=== PATIENT | female | born 1960 | race Caucasian/White ===

== ENCOUNTER → 2018-04-28 10:15 | Outpatient (CLI) | payer OTHER, SELFPAY | PROVIDERS: Family Provider Internal Medicine; PCP Internal Medicine; Visit Provider Obstetrics & Gynecology | DX: Z12.31 Encounter for screening mammogram for malignant neoplasm of breast (principal) | CPT/HCPCS: 77063; 77067 ==

== ENCOUNTER → 2019-06-13 | Outpatient (CLI) | payer OTHER, SELFPAY ==
--- NOTE | 2019-06-13 10:37 | BI_ITS ---
BILATERAL DIGITAL MAMMOGRAM WITH TOMOSYNTHESIS: Mediolateraloblique and craniocaudal views demonstrate no evidence of dominant parenchymal masses. No cluster of microcalcification or architectural distortion is seen. No evidence of skin thickening. No significant change since 04/28/2018. Breast Density: There are scattered areas of fibroglandular density. CAD was used to assist in final assessment. IMPRESSION: NORMAL MAMMOGRAM BILATERALLY. FINAL ASSESSMENT: BIRAD 1 (NEGATIVE) YEARLY MAMMOGRAM RECOMMENDED Approximately 10% of breast cancers are not detected by mammography. A normal mammogram should not delay biopsy of a clinically suspicious abnormality. Electronically Signed: Honorio Villar, at 19:25 EDT Tel , Service support , BI/SCREEN MAMM (CAD) W/RANDOLPH QUIJANO
== END | disposition home or self-care (01) ==
LOC: OPBI 10:33
PROVIDERS: Family Provider Internal Medicine; PCP Internal Medicine; Referring Provider Internal Medicine; Visit Provider Internal Medicine
DX: Z12.31 Encounter for screening mammogram for malignant neoplasm of breast (principal)
CPT/HCPCS: 77063; 77067

== ENCOUNTER → 2020-08-22 08:11 | Outpatient (CLI) | payer OTHER, SELFPAY ==
--- NOTE | 2020-08-22 08:14 | BI_ITS ---
MAMMOGRAPHY - BILATERAL SCREENING REASON FOR EXAM: Female, 60 years old. Routine annual screening examination. PERTINENT HISTORY: Non-contributory. TECHNIQUE: Digital bilateral breast randolph (3D mammographic acquisition) in the CC and MLO projections. 2-D mediolateral oblique (MLO) and craniocaudad (CC) views of both breasts were obtained. CAD: Full Field Digital Mammography with Computer Added Detection was performed. COMPARISON: Comparison is made with prior study dated 06/13/2019 and 04/28/2018. FINDINGS: Breast Composition: There are scattered areas of fibroglandular density. Stable small benign-appearing bilateral axillary lymph nodes. There are no dominant masses or suspicious calcifications. No other significant abnormalities are identified. There has been no significant change since the prior study. BI/SCREEN MAMM (CAD) W/RANDOLPH BILAT IMPRESSION: Stable bilateral screening mammogram. Yearly follow-up mammogram recommended. (A) ASSESSMENT CATEGORY: BIRADS Category 2: Benign. A letter regarding these results will be sent to the patient by the facility within 30 days. Approximately 10% of breast cancers are not detected by mammography. A normal mammogram should not delay biopsy of a clinically suspicious abnormality. [id number] Electronically Signed: Puneet Workman, at 9:12 EST , Service support ,
== END ==
PROVIDERS: PCP Internal Medicine; Referring Provider Internal Medicine; Visit Provider Internal Medicine
DX: Z12.31 Encounter for screening mammogram for malignant neoplasm of breast (principal)
CPT/HCPCS: 77063; 77067

== ENCOUNTER 2021-07-24 10:05 | Emergency (ER) | payer OTHER, SELFPAY ==
[2021-07-24 10:06] VITALS: BP 179/72; PULSE 67; RESP 18; TEMP 37; O2SAT 99; BMI 40.4
--- NOTE | 2021-07-24 10:22 | CT_ITS ---
STUDY: CT ABDOMEN AND PELVIS WITHOUT CONTRAST REASON FOR EXAM: Female, 61 years old. Right flank pain RADIATION DOSAGE (If Supplied By Facility): CTDIvol = ( 21.69 ) mGy, DLP = ( 1067.57 ) mGycm TECHNIQUE: Transaxial images were obtained from the dome of the diaphragm to the symphysis pubis without oral contrast, and without intravenous contrast. Sagittal and coronal images were reconstructed. Individualized dose optimization techniques were used for this CT. COMPARISON: None. FINDINGS: The visualized lung bases are unremarkable. The visualized portions of the heart are within normal limits. There is decreased attenuation of the liver consistent with steatosis. Normal gallbladder and extrahepatic biliary system. Normal spleen. Normal pancreas. Normal bilateral adrenal glands. There is mild degree of right hydronephrosis and right hydroureter down to the level of the ureterovesical junction. A 3 mm calculus is seen at the base of the bladder on the right side suggestive of a recently passed ureteral calculus. Normal left kidney. Normal visualized stomach. Normal small intestine. There are scattered colonic diverticula consistent with diverticulosis. The appendix is visualized and appears normal. There is diffuse atherosclerotic calcification of the abdominal aorta and its major visceral branches, without a demonstrated aneurysm. Normal inferior vena cava. Normal retroperitoneum. Normal urinary bladder. Bilateral tubal ligation clips are seen in the pelvis. Calcified fibroid uterus. Normal abdominal wall. There are mild degenerative changes of the visualized lumbar spine. CT/Abdomen/Pelvis without Cont IMPRESSION: Findings suggestive of a recently passed 3 mm calculus at the base of the bladder on the right side with resultant right hydronephrosis and mild hydroureter. Electronically Signed: Puneet Workman MD at 11:33 EST , Service support ,
[2021-07-24] MEDS: Ketorolac 15 MG/ML Vial IV (10:37)
[2021-07-24] MEDS: Morphine 4 MG/ML Syringe IV ×2 (10:37→13:18)
--- NOTE | 2021-07-24 10:40 | EX.ED.DYSGE1 ---
HPI History of Present Illness Chief Complaint: Flank Pain Informant: patient Narrative Narrative: Patient is a 61-year-old female present with sudden onset of right sided flank pain. She states it started around 830 this morning. She was just sitting talking on the phone it started. It radiates to her right groin and into her back. She is never had anything like this before. The pain is constant but it does change in intensity. She states sometimes she feels very hot and starts feeling nauseous and gaggin associated with the severe pain. She denies any associated numbness or tingling. Did not take any medications prior to arrival. Was given Zofran in route via EMS. Denies any urinary symptoms. Denies any incontinence. Denies any history of kidney stones. PFSH PFS Medical History Basal cell carcinoma (BCC) Fibromyalgia Tachycardia with hypertension Home Medications atenolol 25 mg PO DAILY 01/08/14 [History Last Taken 01/07/14] hydrocodone-acetaminophen 1 tab PO Q8H PRN 2 Days #6 tab 07/24/21 [Rx Last Taken Unknown] ondansetron HCl [Zofran] 4 mg PO Q8H PRN #14 tab 07/24/21 [Rx Last Taken Unknown] Allergy/AdvReac Type Severity Reaction Status Date / Time prednisone AdvReac Rash Verified 07/24/21 10:12 Social History Smoking Status: Never smoker ROS [facility] ED Constitutional Constitutional ED: Reports sweats; Denies chills or fever(s) Eyes Eyes: Denies change in vision ENT ENT ED: Denies ear pain Cardiovascular Cardiovascular: Denies chest pain Respiratory/Chest Respiratory/Chest: Denies cough or dyspnea Gastrointestinal Gastrointestinal: Reports abdominal pain and nausea; Denies constipation, diarrhea or vomiting Genitourinary Genitourinary ED: Denies dysuria, hematuria or urinary frequency Musculoskeletal Musculoskeletal: Reports back pain; Denies arthralgias or myalgias Integumentary Denies rash Neurologic Neurologic: Denies headache(s), paresthesias or weakness Psychiatric Psychiatric: Denies depression EXAM Physical Exam Const Vital Signs: 07/24/21 10:06 Temperature 98.6 F Temperature Source Oral Pulse Rate 67 Respiratory Rate 18 Blood Pressure 179/72 H Blood Pressure Mean 107 Pulse Ox 99 Oxygen Delivery Method Room Air Positive well nourished and well developed Constitutional Narrative: Acute distress secondary to pain General Appearance ED: well developed HEENT Reports moist mucous membranes Negative for trauma Eyes PERRL and EOMs intact bilaterally Neck supple and no JVD Chest Wall inspection of chest normal Resp normal respiratory effort and clear to auscultation bilaterally Cardio regular rate, regular rhythm and no murmurs Rate: other Other Details: 2+ bilateral PT pulses GI normal to inspection, nondistended, normoactive bowel sounds, non-tender and no masses GI Narrative: Patient points to her right flank as the area of pain but is not reproducible on palpation Palpation: Negative for tender or guarding Back/Spine no CVA tenderness Extremity normal to inspection General Extremety ED: Negative for edema or tenderness General Extremity: Negative for edema Neuro oriented x3 Sensorium / Orientation: alert Motor Exam: Negative for general weakness Psych mental status grossly normal Skin no rashes or lesions noted MDM MDM MDM Narrative Medical decision making narrative: Patient evaluated sudden onset of flank pain. Presentation is concerning for a passing kidney stone. She is treated with Toradol, morphine and Zofran. Will obtain CT, labs and urinalysis. Work-up significant for leukocytosis of 13.0. I suspect this is reactive. Urinalysis is most consistent with contamination. CT shows what looks to be a recently passed 3 mm stone in the bladder. I suspect patient passed the stone without causing her pain. She is having improvement of pain but states she still feels that she is having spasms. She is given a dose of [place] in the ER. She is discharged home to follow-up with her PCP and given a short course of pain medications. Patient is counseled on signs and symptoms requiring return to the emergency room. Patient verbalizes agreement and understand this plan. Patient discharged home in stable and improved condition. Lab Data Attestation: I reviewed the patient's lab results. Labs: Laboratory Results - last 24 hr 07/24/21 07/24/21 07/24/21 10:40 10:40 10:50 WBC 13.0 H RBC 4.91 Hgb 13.7 Hct 43.0 MCV 87.6 MCH 27.9 MCHC 31.9 L RDW Std Deviation 42.1 RDW Coeff of Jermaine 13.2 Plt Count 261 MPV 10.1 Immature Gran % (Auto) 0.700 Neut % (Auto) 75.6 H Lymph % (Auto) 16.4 L [place] % (Auto) 5.6 Eos % (Auto) 1.2 Baso % (Auto) 0.5 Absolute Neuts (auto) 9.9 H Absolute Lymphs (auto) 2.14 Nucleated RBC % 0 Sodium 138 Potassium 3.8 Chloride 106 Carbon Dioxide 25.0 Anion Gap 7 BUN 17 Creatinine 0.99 Estim Creat Clear Calc 44.46 Est GFR (MDRD) Af Amer 73 Est GFR (MDRD) Non-Af 61 BUN/Creatinine Ratio 17.2 Glucose 187 H Calcium 9.1 Urine Color Yellow Urine Clarity Sl. Cloudy Urine pH 5.0 Ur Specific [place] 1.025 Urine Protein 100 H Urine Glucose (UA) Normal Urine Ketones Negative Urine Occult Blood 250 H Urine Nitrite Negative Urine Bilirubin Negative Urine Urobilinogen Normal Ur Leukocyte Esterase 25 H Urine RBC 0-5 SEEN Urine WBC 0-5 SEEN Ur Squamous Epith Cells 10-25 SEEN Urine Bacteria 0 SEEN Urine Mucus 0 SEEN Radiography Diagnostic Testing: Clinical Impression(s) from Imaging Studies Abdomen/Pelvis CT 07/24/21 10:22 IMPRESSION: Findings suggestive of a recently passed 3 mm calculus at the base of the bladder on the right side with resultant right hydronephrosis and mild hydroureter. Electronically Signed: Puneet Workman MD at 11:33 EST , Service support , Discharge Plan Triage Chief Complaint: Flank Pain ED Provider: Mae Infante Dx/Rx/DC Orders Clinical Impression: Nausea and vomiting, Kidney stone on right side, Renal colic on right side Instructions: ED Kidney Stone, Passed Prescriptions: New hydrocodone-acetaminophen 5-325 mg tablet 1 tab PO Q8H PRN (Reason: pain) 2 Days Qty: 6 RF: 0 ondansetron HCl [Zofran] 4 mg tablet 4 mg PO Q8H PRN (Reason: nausea and vomiting) Qty: 14 RF: 0 No Action atenolol 25 MG tablet 25 mg PO DAILY RF: 0 Primary Care Provider: Emily Flores Referrals: Jessy Huggins MD [STAFF PHYSICIAN] - Emily Flores MD [Primary Care Provider] - Activity Restrictions/Additional Instructions: Take over the counter Ibuprofen as needed for pain. Disposition Disposition: Home, Self Care
[2021-07-24] MEDS: 0.9% Normal Saline 1,000 ML 999 ML IV (10:43)
[2021-07-24 10:55] LABS: Bacteria 0 SEEN /hpf (None Seen); Mucous, Urine 0 SEEN /hpf (<or=2+)
[2021-07-24 10:56] LABS: Absolute Lymphocyte Count 2.14 X10^3/uL (0.83-4.51); Absolute Neutrophil Count 9.9 X10^3/uL (2.0-7.7); Basophil# 0.07 X10^3/uL; Basophil% 0.5 % (0-1); Eosinophil# 0.15 X10^3/uL; Eosinophils% 1.2 % (0-5); Hemoglobin 13.7 g/dL (12.0-15.0); Lymphocyte # 2.14 X10^3/ul (0.83-4.51); Lymphocyte % 16.4 % (19-41); Mean Corp Hgb Conc 31.9 g/dL (32-36); Mean Corpuscular Hgb 27.9 pg (27.0-32.0); Mean Corpuscular Volume 87.6 fL (81-99); Mean Platelet Vol. 10.1 fl (6.2-12.0); Monocyte# 0.73 X10^3/uL; Monocyte% 5.6 % (0-10); NRBC Flagged by Analyzer 0 % (0-5); Neutrophil # 9.86 X10^3/uL (2.7-7.7); Neutrophil % 75.6 % (47-70); Platelet Count 261 K/mm3 (150-450); RBC Distribution Width CV 13.2 % (11.6-14.6); RBC Distribution Width SD 42.1 fl (35.1-43.9); Red Blood Count 4.91 M/mm3 (4.2-5.4)
[2021-07-24 11:00] LABS: Color, Urine Yellow (Yellow); Glucose, Dipstick Normal (Normal); Ketone-Dipstick Negative (Negative); Leukocyte Esterase-Dipstick 25 /ul (Negative); Nitrite-Dipstick Negative (Negative); Occult Blood-Urine 250 /ul (Negative); Protein-Dipstick 100 mg/dl (Negative); Specific Gravity, Urine 1.025 (1.002-1.030); Urine Bilirubin Dipstick Negative (Negative); Urine Clarity Sl. Cloudy (Clear); Urine Urobilinogen Normal (Normal)
[2021-07-24 11:06] LABS: Anion Gap 7 (5-15); BUN 17 mg/dL (7-18); BUN/Creat Ratio 17.2 RATIO (10-20); Calcium,Total 9.1 mg/dL (8.5-10.1); Chloride 106 mmol/L (98-107); Creatinine, Serum 0.99 mg/dL (0.55-1.02); EST Glomerular Filtration Rate 61 mL/min (>60); Est Glom Filt Rate - Afr Amer 73 mL/min (>60); Estimated Creatinine Clearance 44.46 ml/min; Glucose 187 mg/dL (74-106); Potassium 3.8 mmol/L (3.5-5.1); Sodium Level 138 mmol/L (136-145)
[2021-07-24 11:12] LABS: Red Blood Cells-Urine 0-5 SEEN /hpf (0-5); Squamous Epithelial Cells - UA 10-25 SEEN /hpf (5-10); White Blood Cells 0-5 SEEN /hpf (0-5)
[2021-07-24] MEDS: HYDROcodone Bitartrate/Apap 5/325 Tablet PO (12:03)
[2021-07-24 12:05] VITALS: PULSE 71; RESP 16; O2SAT 100
[2021-07-24 13:44] VITALS: BP 135/74; PULSE 75
== END 2021-07-24 13:50 | disposition home or self-care (01) ==
PROVIDERS: Emergency Provider Emergency Medicine; PCP Internal Medicine
DX: N13.2 Hydronephrosis with renal and ureteral calculous obstruction (principal); R11.2 Nausea with vomiting, unspecified
CPT/HCPCS: 74176; 80048; 81001; 85025; 96361; 96374; 96375; 96376; 99285; J7030; A4216

== ENCOUNTER 2023-08-19 03:39 | Inpatient (IN) | payer BC, SELFPAY ==
[2023-08-19] VITALS (28 sets, daily range): BP systolic 120–151; BP diastolic 61–92; PULSE 78–101; RESP 12–26; TEMP 36.1–36.6; O2SAT 97–100; BMI 40.1; BMI 39.6
--- NOTE | 2023-08-19 03:43 | EKG12_ITS ---
Test Reason : CP Blood Pressure : / mmHG Vent. Rate : 084 BPM Atrial Rate : 084 BPM P-R Int : 154 ms QRS Dur : 096 ms QT Int : 386 ms P-R-T Axes : 056 031 037 degrees QTc Int : 456 ms Critical Test Result: STEMI Normal sinus rhythm ST elevation consider inferior injury or acute infarct ACUTE FL / STEMI Abnormal ECG Confirmed by ROLY ANDREWS, ERROL ([id number]), movie editor DAYNE LION ([id number]) on 08/23/2023 1:56:20 P M Referred By: Zara Limon Confirmed By:BRENDA LIMON MD
[2023-08-19] MEDS: Aspirin 81 MG TAB.CHEW 324 MG PO (03:49)
[2023-08-19] MEDS: Heparin Injection (Vial) 5,000 UNIT/ML VIAL 4000 UNIT IV (03:51)
[2023-08-19 03:52] LABS: Absolute Lymphocyte Count 5.19 X10^3/uL (0.83-4.51); Absolute Neutrophil Count 5.7 X10^3/uL (2.0-7.7); Basophil# 0.09 X10^3/uL; Basophil% 0.7 % (0-1); Eosinophil# 0.47 X10^3/uL; Eosinophils% 3.7 % (0-5); Hematocrit 42.9 % (37-47); Hemoglobin 13.8 g/dL (12.0-15.0); Lymphocyte # 5.19 X10^3/ul (0.83-4.51); Lymphocyte % 41.3 % (19-41); Mean Corp Hgb Conc 32.2 g/dL (32-36); Mean Corpuscular Hgb 28.6 pg (27.0-32.0); Mean Corpuscular Volume 88.8 fL (81-99); Mean Platelet Vol. 9.9 fl (6.2-12.0); Monocyte# 1.05 X10^3/uL; Monocyte% 8.4 % (0-10); NRBC Flagged by Analyzer 0 % (0-5); Neutrophil # 5.73 X10^3/uL (2.7-7.7); Neutrophil % 45.6 % (47-70); POSITIVE DIFFERENTIAL YES; Platelet Count 323 K/mm3 (150-450); RBC Distribution Width CV 13.2 % (11.6-14.6); RBC Distribution Width SD 42.6 fl (35.1-43.9); Red Blood Count 4.83 M/mm3 (4.2-5.4); White Blood Count 12.6 K/mm3 (4.4-11.0)
[2023-08-19] MEDS: Nitroglycerin SL (ED/IMG/CATH) 0.4 MG TABLET SL ×3 (03:55→04:06)
[2023-08-19] MEDS: TICAGRELOR 90 MG TABLET 180 MG PO (03:58)
[2023-08-19 04:01] LABS: Differential Indicated SCAN CRITERIA MET; International Normalized Ratio 0.9; Prothrombin Time (Protime)PT. 12.5 SECONDS (11.7-14.9)
[2023-08-19 04:02] LABS: Partial Thromboplast Time 24.7 Seconds (24.1-36.2)
--- NOTE | 2023-08-19 04:03 | ED.VIS.CHEST ---
HPI History of Present Illness Chief Complaint: Chest Pain Informant: patient Narrative Narrative: Patient is a 63-year-old female with history of hypertension, arrhythmia, diet-controlled diabetes mellitus who takes atenolol as her only medication daily presenting with chest pain. Patient states she has been having chest pain intermittently for the past 2 days however she had recurrent chest pain starting around 1 AM this morning. She woke up with pain at 1 AM and then fell back asleep. At 3 AM she woke up with pain again however she cannot fall asleep and the pain is only continued/worsened. Is in the left chest radiates to her neck, back, jaw and down her left arm. Very mild nausea with no vomiting and mild diaphoresis. The past few nights she has been able to sleep well because of discomfort but thought maybe she pulled a muscle in her back. Came in with her sister via private vehicle. Denies any known history of heart disease. Father did have heart disease. No other complaints or concerns at this time. Is otherwise been in her normal state health. Lives home independently. Is a , her 3 years ago. [facility] Medical History (Updated 08/19/23 @ 05:[address] Mae Infante, DO) Basal cell carcinoma (BCC) Fibromyalgia HTN (hypertension) Morbid obesity Obesity Tachycardia with hypertension Type II diabetes mellitus Home Medications atenolol 25 mg tablet 25 mg PO DAILY 01/08/14 [History Last Taken 01/07/14] Allergy/AdvReac Type Severity Reaction Status Date / Time prednisone AdvReac Rash Verified 08/19/23 03:47 Family History (Updated 08/19/23 @ 04:[address] Renee Bone MD) Mother Rheumatoid arthritis Father CAD (coronary artery disease) Heart disease Hypertension Myocardial infarction Surgical History (Updated 08/19/23 @ 04:[address] Renee Bone MD) H/O tubal ligation History of tonsillectomy and adenoidectomy Social History (Updated 08/19/23 @ 04:[address] Renee Bone MD) household members: none Smoking Status: Never smoker alcohol intake: never substance use type: does not use ROS ROS ED Constitutional Constitutional ED: Denies chills or fever(s) Eyes Eyes: Denies blurry vision Cardiovascular Cardiovascular: Reports as per HPI and chest pain; Denies palpitations Respiratory/Chest Respiratory/Chest: Reports dyspnea; Denies cough or dyspnea on exertion Gastrointestinal Gastrointestinal: Reports nausea; Denies abdominal pain or vomiting Musculoskeletal Musculoskeletal: Denies arthralgias or myalgias Integumentary Denies rash Neurologic Neurologic: Denies headache(s), paresthesias or weakness Hematologic/Lymphatic Hematologic/Lymphatic: Denies easy bleeding or easy bruising EXAM Physical Exam Const Vital Signs: 08/19/23 03:39 08/19/23 03:44 08/19/23 03:55 Temperature 96.9 F L Temperature Source Temporal Pulse Rate 85 85 Respiratory Rate 14 16 Blood Pressure 147/85 H 147/85 H 147/85 H Blood Pressure Mean 105 Pulse Ox 99 Oxygen Delivery Method Room Air 08/19/23 03:43 08/19/23 04:00 08/19/23 04:06 Temperature Temperature Source Pulse Rate 93 80 Respiratory Rate Blood Pressure 151/83 H 150/67 H Blood Pressure Mean Pulse Ox 100 Oxygen Delivery Method Room Air Positive well nourished and well developed Constitutional Narrative: Slightly pale appearing General Appearance ED: well developed Eyes PERRL and EOMs intact bilaterally General Eye ED: Negative for pale conjunctiva Neck supple and no JVD Chest Wall inspection of chest normal and palpation of chest normal Resp normal respiratory effort and clear to auscultation bilaterally Cardio regular rate, regular rhythm and no murmurs Peripheral Pulses: pulses 2+ throughout GI normal to inspection, nondistended, normoactive bowel sounds, soft to palpation and no masses Extremity normal to inspection General Extremety ED: Negative for edema or pulses abnormal General Extremity: Negative for edema or pulses abnormal Neuro oriented x3 Sensorium / Orientation: awake and alert Motor Exam: Negative for general weakness Psych mental status grossly normal Skin no rashes or lesions noted Heart Score History: Highly Suspicious ECG: Significant ST-Depression Age: >/= 65 years Risk Factors: 1 or 2 Risk Factors Score: 7 MDM MDM MDM Narrative Medical decision making narrative: Evaluated for a worsening chest pain. EKG obtained upon arrival which is highly concerning for acute IA. Patient has ST elevation in 1 as well as V6 with depressions in V1 and V2. STEMI alert is called. Patient is ordered full dose chewable aspirin, heparin, Brilinta and nitroglycerin. Placed on continuous cardiac monitoring and defibrillator pads were placed on her as well. Case discussed with hospitalist, Dr. Bone as well as interventional cardiology on-call, Dr. Limon. Patient will be transferred to the [facility]. Patient has worsening pain after receiving nitroglycerin and is ordered morphine for her pain. Does have improvement of her pain with morphine. Is transferred to the Plant [facility]ust[facility]. I since she troponin is elevated at 447. Lab Data Attestation: I reviewed the patient's lab results. Labs: Laboratory Results - last 24 hr 08/19/23 03:48 WBC 12.6 H RBC 4.83 Hgb 13.8 Hct 42.9 MCV 88.8 MCH 28.6 MCHC 32.2 RDW Std Deviation 42.6 RDW Coeff of Jermaine 13.2 Plt Count 323 MPV 9.9 Immature Gran % (Auto) 0.300 Neut % (Auto) 45.6 L Lymph % (Auto) 41.3 H [place] % (Auto) 8.4 Eos % (Auto) 3.7 Baso % (Auto) 0.7 Absolute Neuts (auto) 5.7 Absolute Lymphs (auto) 5.19 H Nucleated RBC % 0 Differential Comment SCANNED PT 12.5 INR 0.9 APTT 24.7 Sodium 144 Potassium 3.0 L Chloride 108 H Carbon Dioxide 28.0 Anion Gap 8 BUN 13 Creatinine 0.81 Estim Creat Clear Calc 55.49 Est GFR (MDRD) Af Amer 92 Est GFR (MDRD) Non-Af 76 BUN/Creatinine Ratio 16.1 Glucose 159 H Calcium 8.6 Magnesium 2.0 Troponin I High Sens 447 H* Rhythm Strip Rhythm Strip: Sinus Rhythm Rate: 84 Ectopy: None EKG Initial EKG: Attestation: I personally reviewed and interpreted this EKG as follows: Interpretation: Sinus Rhythm Comments: Sinus rhythm at a rate of [address] elevation in 1 as well as V6 with significant ST depressions in V1 and V2 concerning for acute STEMI, Management Discussion w/another healthcare provider: Hospitalist and Building Code Inspector (Cardiology) Critical Care Time Critical Care Time: Yes Critical care time (excluding procedures): 30-74 minutes (30), Discussing w/Patient &/or Family/Dispatcher Chief [employer], Discussing w/Consultants and Arranging Admission or Transfer Discharge Plan Dx/Rx/DC Orders Clinical Impression: STEMI (ST elevation myocardial infarction) Disposition Disposition: Acute Care Hospital [facility] Discharge Date/Time: 08/19/23 04:43
--- NOTE | 2023-08-19 04:10 | HP.PCM.HOS_ITS ---
HPI - General General Date of Admission: 08/19/23 Date of Service: 08/19/23 Chief Complaint: Chest pain HPI Narrative The patient is a 63 y/o F with node approximately 3 years prior w/ PMHx: Morbid Obesity, Fibromyalgia, Diet controlled Diabetes mellitus type II, HTN, Hx Tachycardia on BB therapy who presents to the [facility] ED on 08/19/23 with history of ~ 2 days of intermittent left sided chest pain with radiation into the LUE, shoulder, back and jaw, described as pressure like in sensation with associated nausea without emesis, mild diaphoresis, dyspnea occurring while at rest/active prompting her to even sleep in a chair secondary to suspicion that she had pulled a muscle as she was so sore however at approximately 1 AM on day of pr esentation she was awoken secondary to worsening chest discomfort but was able to fall back asleep then awakening again at 3 AM secondary to recurrent pain which did not leonila and was continuous prompting eventual ED evaluation. She notes that her pain upon current presentation is 10 out of 10 in severity. Workup in the ED included T97.9, heart rate 78, BP 143/74, respiratory rate 18, 98% on room air, CBC with WBC 12.6, hemoglobin 13.8, platelet 323 with lymphocytosis, unremarkable coags, BMP with potassium 3.0, chloride 108, glucose 159, initial troponin 447, EKG with ST elevation in 1 as well as V6 with depression in V1 and V2 prompting STEMI alert. Patient was administered full-strength aspirin, Brilinta load and heparin bolus. In the ED patient also administered sublingual nitroglycerin and morphine therapy. [facility], [facility] Medical History (Updated 08/19/23 @ 04:[address] Renee Bone MD) Basal cell carcinoma (BCC) Fibromyalgia HTN (hypertension) Morbid obesity Obesity Tachycardia with hypertension Type II diabetes mellitus Home Medications atenolol 25 mg tablet 25 mg PO DAILY 01/08/14 [History Last Taken 01/07/14] Allergy/AdvReac Type Severity Reaction Status Date / Time prednisone AdvReac Rash Verified 08/19/23 03:47 Family History (Updated 08/19/23 @ 04:[address] Renee Bone MD) Mother Rheumatoid arthritis Father CAD (coronary artery disease) Heart disease Hypertension Myocardial infarction Surgical History (Updated 08/19/23 @ 04:[address] Renee Bone MD) H/O tubal ligation History of tonsillectomy and adenoidectomy Social History (Updated 08/19/23 @ 04:[address] Renee Bone MD) household members: none Smoking Status: Never smoker alcohol intake: never substance use type: does not use ROS ROS Narrative Admission Review of Systems: CONSTITUTIONAL: No weight loss, fever, chills, + weakness or fatigue. HEENT: Eyes: No visual loss, blurred vision, double vision or yellow sclerae. Ears, Nose, Throat: No hearing loss, sneezing, congestion, runny nose or sore throat. SKIN: No rash or itching, lesions, wounds. CARDIOVASCULAR: + chest pain, chest pressure. No palpitations, edema, orthopnea, syncopal events. RESPIRATORY: + Shortness of breath. No cough or sputum, wheezing, hemoptysis. GASTROINTESTINAL: + anorexia, nausea. No vomiting or diarrhea, abdominal pain, melena, BRBPR. GENITOURINARY: No dysuria, frequency, urgency or retention. NEUROLOGICAL: No headache, dizziness, syncope, paralysis, ataxia, numbness or tingling in the extremities, focal weakness, change in bowel or bladder control, seizure. MUSCULOSKELETAL: + muscle, back pain, joint pain or stiffness. HEMATOLOGIC: No anemia, bleeding or bruising. LYMPHATICS: No enlarged nodes. No history of splenectomy. PSYCHIATRIC: No history of depression or anxiety. ENDOCRINOLOGIC: + reports of sweating. No cold or heat intolerance. No polyuria or polydipsia. ALLERGIES: No history of asthma, hives, eczema or rhinitis. Vital Signs Vital Signs Vital Signs: 08/19/23 03:39 08/19/23 03:44 08/19/23 03:55 Temperature 96.9 F L Temperature Source Temporal Pulse Rate 85 85 Respiratory Rate 14 16 Blood Pressure 147/85 H 147/85 H 147/85 H Blood Pressure Mean 105 Pulse Ox 99 Oxygen Delivery Method Room Air 08/19/23 03:43 08/19/23 04:00 08/19/23 04:06 Temperature Temperature Source Pulse Rate 93 80 Respiratory Rate Blood Pressure 151/83 H 150/67 H Blood Pressure Mean Pulse Ox 100 Oxygen Delivery Method Room Air Weight Weight: 219 lb 5.759 oz Body Mass Index (BMI) 40.1 Physical Exam Narrative Physical Examination: General: Awake, alert, oriented x 3 and cooperative, seated upright in the ED bed, uncomfortable appearing, notes pain still 10/10. Skin: Normal color, normal turgor, no icterus, no cyanosis. HEENT: AT/NC, EOMI, PERRLA, MMM, no carotid bruits or JVD noted; however, thickened neck makes evaluation difficult. Lungs: CTA bilaterally, moderate effort, mild decrease BL bases, no rales, ronchi or wheezing. Heart: Regular rate and rhythm; no gallop, rub audible. Abdomen: Soft, morbidly obese, NTTP, ND, distant normal BS, no appreciated HSM; however, difficult exam given habitus. Extremities: No cyanosis, clubbing, or edema. Neurological: Patient awake, alert, oriented as noted, cognitive function intact; pupils equally reactive to light and accommodation, cranial nerves grossly normal, moving all 4 extremities, no focal deficits, strength moderately to severely globally decreased secondary to acute presentation. Psychiatric: Affect appears fatigued, uncomfortable, no acute evidence of dep ressive or anxiety feelings. Results Lab / Micro Data 08/19/23 03:48 08/19/23 03:48 Labs: Laboratory Results - last 24 hr 08/19/23 03:48: WBC 12.6 H, RBC 4.83, Hgb 13.8, Hct 42.9, MCV 88.8, MCH 28.6, MCHC 32.2, RDW Std Deviation 42.6, RDW Coeff of Jermaine 13.2, Plt Count 323, MPV 9.9, Immature Gran % (Auto) 0.300, Neut % (Auto) 45.6 L, Lymph % (Auto) 41.3 H, [place] % (Auto) 8.4, Eos % (Auto) 3.7, Baso % (Auto) 0.7, Absolute Neuts (auto) 5.7, Absolute Lymphs (auto) 5.19 H, Nucleated RBC % 0, PT 12.5, INR 0.9, APTT 24.7 Rhythm Strip Rhythm Strip: Sinus Rhythm Rate: 84 Ectopy: None Assessment & Plan Assessment/Plan (1) STEMI (ST elevation myocardial infarction): PLAN: Plan The patient is a 63 y/o F with node approximately 3 years prior w/ PMHx: Morbid Obesity, Fibromyalgia, Diet controlled Diabetes mellitus type II, HTN, Hx Tachycardia on BB therapy who presents to the [facility] ED on 08/19/23 with history of ~ 2 days of intermittent left sided chest pain with radiation into the LUE, shoulder, back and jaw, described as pressure like in sensation with associated nausea without emesis, mild diaphoresis, dyspnea occurring while at rest/active prompting her to even sleep in a chair secondary to suspicion that she had pulled a muscle as she was so sore however at approximately 1 AM on day of presentation she was awoken secondary to worsening chest discomfort but was able to fall back asleep then awakening again at 3 AM secondary to recurrent pain which did not leonila and was continuous prompting eventual ED evaluation. #1. Chest Pain w/ Acute STEMI: EKG in ED w/ sinus rhythm with ST elevation in V1 as well as V6 with depression in V1 and 2, chest x-ray pending upon evaluation of patient. Trop elevated, initial 447. Transition to the cardiac catheterization lab with admission following to the ICU, will maintain on a mo nitored bed, continue serial cardiac enzymes and EKGs. Obtain magnesium level upon admission with potassium supplementation given hyperkalemia as noted. Heparin bolus and Brilinta load administered in the ED as well as full-strength aspirin therapy. Continue medical management w/ asa, BB, add high-dose statin w/ AM FLP. ECHO requested. ASA, NG, morphine. #2. Hypokalemia: Admission K+ 3.0, magnesium level requested, supplementation given, repeat level in AM. #3. Hypertension: Continue home regimen including atenolol however will defer to cardiology discretion to change this given her acute presentation as noted, PRN hydralazine. #4. Diabetes mellitus type II, reported as diet controlled: Admission glucose 159, hemoglobin A1c requested be cautious, given planned catheterization will transition to ADA diet following once cleared per cardiology discretion, maintain on accu checks w/ ISS. #5. History of tachycardia: We will continue patient beta-leena therapy although as noted will defer to cardiology discretion if changes are necessary given her acute presentation. #6. Morbid Obesity: Weight loss and lifestyle changes encouraged, nutrition consulted. #7. DVT prophylaxis: Heparin bolus administered in the ED given STEMI presentation as noted,transition chemoprophylaxis Lovenox 08/20/23. #8. CODE status: Patient does not have healthcare power of campaign associate or living w ill in place but notes that her sister who is present and her son would be her decision makers if necessary. Discussed CODE status at length including difference between FULL code, DNR-CCA and DNR-CC status. Following discussions about the differences in these status, requested Full Code status. Advanced Care Planning Face to Face Time: 16 minutes. Charges/Coding Visit Charges Inpatient E&M: 28363 Init Hosp L3 Procedures Hospitalists Procedures: 74262 Advncd Care Plan 30 Min
[2023-08-19] MEDS: Morphine 4 MG/ML Syringe IV (04:11)
[2023-08-19 04:18] LABS: Anion Gap 8 (5-15); BUN 13 mg/dL (7-18); BUN/Creat Ratio 16.1 RATIO (10-20); Calcium,Total 8.6 mg/dL (8.5-10.1); Chloride 108 mmol/L (98-107); Creatinine, Serum 0.81 mg/dL (0.55-1.02); EST Glomerular Filtration Rate 76 mL/min (>60); Est Glom Filt Rate - Afr Amer 92 mL/min (>60); Estimated Creatinine Clearance 55.49 ml/min; Glucose 159 mg/dL (74-106); Sodium Level 144 mmol/L (136-145); Troponin-I HS 447 pg/mL (3.0-54.0)
--- NOTE | 2023-08-19 04:32 | EKG12_ITS ---
Test Reason : AM EKG Blood Pressure : / mmHG Vent. Rate : 087 BPM Atrial Rate : 087 BPM P-R Int : 152 ms QRS Dur : 090 ms QT Int : 398 ms P-R-T Axes : 079 022 047 degrees QTc Int : 478 ms Sinus rhythm with occasional Premature ventricular complexes Nonspecific ST abnormality Abnormal ECG When compared with ECG of 19-AUG-2023 03:40, MANUAL COMPARISON REQUIRED, DATA IS UNCONFIRMED Confirmed by ROLY ANDREWS, ERROL ([id number]), market editor DAYNE LION ([id number]) on 08/23/2023 12:54:56 PM Referred By: Zara Limon Confirmed By:BRENDA LIMNO MD
[2023-08-19 04:47] LABS: Differential Comment SCANNED
--- NOTE | 2023-08-19 05:16 | ECHOCS_ITS ---
Reason For Study: CAD/ASHD Procedure This was a 2D Doppler, Color Flow transthoracic echocardiogram. The study was technically difficult. Contrast injection was performed. Exam performed portable in ICU/CCU. Left Ventricle Normal LV size. The estimated ejection fraction is 40-45 %. hypokinesis of the lateral wall and inferior goodman. Right Ventricle Normal RV size. Normal systolic function. Atria Normal left atrium. Normal right atrium. No doppler evidence for ASD. Mitral Valve There is no mitral valve stenosis. Trivial mitral valve insufficiency. Tricuspid Valve There is no tricuspid stenosis. Trivial tricuspid valve insufficiency. Pulmonary artery systolic pressure is 35 mmHg. Aortic Valve There is no aortic stenosis. No aortic valve insufficiency. Pulmonic Valve There is no pulmonic valvular stenosis. No pulmonic valve insufficiency. Great Vessels Normal aortic root. Pericardium/Pleural No pericardial effusion. Medication Diluted definity 2ml given slow IV push to enhance endocardial definition. MMode/2D Measurements & Calculations LVIDd: 4.5 cm IVSd: 1.0 cm Ao root diam: 3.0 cm LVIDs: 3.5 cm LVPWd: 0.88 cm LA dimension: 3.9 cm FS: 22.6 % LAV(MOD-bp): 46.1 ml LVAd ap4: 34.0 cm2 SV(MOD-sp4): 59.4 ml LAV(MOD-bp) Indexed: 23.2 ml/m2 LVLd ap4: 7.7 cm LAV(MOD-sp2): 46.5 ml EDV(MOD-sp4): 126.5 ml LAV(MOD-sp4): 40.9 ml EDV(sp4-el): 127.5 ml LVAs ap4: 22.1 cm2 LVLs ap4: 5.9 cm ESV(MOD-sp4): 67.1 ml ESV(sp4-el): 70.6 ml EF(MOD-sp4): 47.0 % EF(sp4-el): 44.7 % SV(sp4-el): 57.0 ml LA A4 area: 16.3 cm2 RA A4 area: 15.2 cm2 TAPSE: 1.7 cm Time Measurements MV dec time: 0.13 sec Doppler Measurements & Calculations MV E max morgan: 86.9 cm/sec Lat Peak E' Morgan: 7.9 cm/sec Med Peak E' Morgan: 8.4 cm/sec MV A max morgan: 96.6 cm/sec E/E' lat: 11.1 E/E' med: 10.4 MV E/A: 0.90 MV V2 max: 116.3 cm/sec MV P1/2t max morgan: 107.1 cm/sec Ao V2 max: 170.3 cm/sec MV max P.4 mmHg MV P1/2t: 48.7 msec Ao max P.6 mmHg MV V2 mean: 66.7 cm/sec Ao V2 mean: 124.8 cm/sec MV mean P.1 mmHg MV dec slope: 644.7 cm/sec2 Ao mean P.0 mmHg MV V2 VTI: 32.4 cm MVA(P1/2t): 4.5 cm2 Ao V2 VTI: 40.7 cm AV (velocity ratio): 0.62 LV V1 max: 100.3 cm/sec PA V2 max: 102.0 cm/sec TR max morgan: 279.2 cm/sec LV V1 max P.0 mmHg PA V2 mean: 69.5 cm/sec TR max P.2 mmHg LV V1 mean P.7 mmHg LV V1 mean: 78.2 cm/sec LV V1 VTI: 25.4 cm ECHO/Echo Complete W/ Contrast Interpretation Summary The estimated ejection fraction is 40-45 %. hypokinesis of the lateral wall and inferior goodman Trivial mitral valve insufficiency. Ordering Physician: Renee Bone Referring Physician: Zara Limon Performed By: Sukhdev Dos Santos RCS
--- NOTE | 2023-08-19 05:23 | PCM.DC.SUM ---
Providers Date of Admission: 08/19/23 Date of Discharge: 08/19/23 Primary Care Physician: Dr. Emily Flores MD Reason For Visit: STEMI Diagnosis Discharge Diagnosis (1) STEMI (ST elevation myocardial infarction): Status: Acute Code(s): I21.3 - ST elevation (STEMI) myocardial infarction of unspecified site Plan: Discharge Diagnoses: #1. Chest Pain w/ Acute STEMI w/ ST elevation V1, V6, depression V1-V2 with triple vessel disease noted on Cardiac catheterization #2. Hypokalemia #3. Hypertension #4. Diabetes mellitus type II, reported as diet controlled #5. History of tachycardia #6. Morbid Obesity Medications at Discharge Home Medications atenolol 25 mg tablet 25 mg PO DAILY 01/08/14 Hospital Course Operations None Procedures Cardiac catheterization Summary of Care Provided Minutes Spent on Discharge: 35 Hospital Course: The patient is a 63 y/o F with node approximately 3 years prior w/ PMHx: Morbid Obesity, Fibromyalgia, Diet controlled Diabetes mellitus type II, HTN, Hx Tachycardia on BB therapy who presented to the [facility] ED on 08/19/23 with history of ~ 2 days of intermittent left sided chest pain with radiation into the LUE, shoulder, back and jaw, described as pressure like in sensation with associated nausea without emesis, mild diaphoresis, dyspnea occurring while at rest/active prompting her to even sleep in a chair secondary to suspicion that she had pulled a muscle as she was so sore however at approximately 1 AM on day of presentation she was awoken secondary to worsening chest discomfort but was able to fall back asleep then awakening again at 3 AM secondary to recurrent pain which did not leonila and was continuous prompting eventual ED evaluation. She notes that her pain upon current presentation is 10 out of 10 in severity. Workup in the ED included T97.9, heart rate 78, BP 143/74, respiratory rate 18, 98% on room air, CBC with WBC 12.6, hemoglobin 13.8, platelet 323 with lymphocytosis, unremarkable coags, BMP with potassium 3.0, chloride 108, glucose 159, initial troponin 447, EKG with ST elevation in 1 as well as V6 with depression in V1 and V2 prompting STEMI alert. Patient was administered full-strength aspirin, Brilinta load and heparin bolus. In the ED patient also administered sublingual nitroglycerin and morphine therapy. Transition to the cardiac catheterization lab and cardiac catheterization performed per Dr. Limon was noted per his preliminary report significant triple-vessel disease with plan per discussion with him following cardiac catheterization to discuss transfer with cardiothoracic surgery once he obtains facilities her insurance accepts and notify staff of accepting physician. Given this patient presentation he requested that 2 hours after the clamp is removed patient to be initiated on heparin drip which was ordered. Weight / BMI Weight Weight: 219 lb 5.759 oz Body Mass Index (BMI) 40.1 ABG / Lab / Microbiology Data 08/19/23 03:48 08/19/23 03:48 Laboratory: Laboratory Results - last 24 hr 08/19/23 03:48: WBC 12.6 H, RBC 4.83, Hgb 13.8, Hct 42.9, MCV 88.8, MCH 28.6, MCHC 32.2, RDW Std Deviation 42.6, RDW Coeff of Jermaine 13.2, Plt Count 323, MPV 9.9, Immature Gran % (Auto) 0.300, Neut % (Auto) 45.6 L, Lymph % (Auto) 41.3 H, [place] % (Auto) 8.4, Eos % (Auto) 3.7, Baso % (Auto) 0.7, Absolute Neuts (auto) 5.7, Absolute Lymphs (auto) 5.19 H, Nucleated RBC % 0, Differential Comment SCANNED, PT 12.5, INR 0.9, APTT 24.7, Sodium 144, Potassium 3.0 L, Chloride 108 H, Carbon Dioxide 28.0, Anion Gap 8, BUN 13, Creatinine 0.81, Estim Creat Clear Calc 55.49, Est GFR (MDRD) Af Amer 92, Est GFR (MDRD) Non-Af 76, BUN/Creatinine Ratio 16.1, Glucose 159 H, Calcium 8.6, Magnesium 2.0, Troponin I High Sens 447 H* Meaningful Use Info Meaningful Use Diagnoses (Choose all that apply): AMI AMI/Post PCI/Angioplasty Aspirin given w/in 24hrs of arrival?: Yes ASA at discharge?: Yes Statins at discharge?: Yes Justo/ARB at discharge?: No Reason Justo/ARB not ordered:: Not indicated (Awaiting tertiary bed at discharge for CABG evaluation) Beta Cody at discharge?: Yes Done w/ Acute [place] measure.: Yes Discharge Plan Admission Admit Date/Time: 08/19/23 04:11 Primary Reason for Your Visit: Chest pain Attending Provider: Renee Bone Primary Care Provider: Eimly Flores Discharge Orders/Prescriptions Prescriptions: No Action atenolol 25 MG tablet 25 mg PO DAILY Patient Comments: Pblood pressure/heart Referrals / Follow Up: Emily Flores MD [Primary Care Provider] - Disposition Disposition (needs filled in before D/C Order can be placed): Acute Care Hospital Charges/Coding Visit Charges OBSV E&M: 04781 Observ/hosp same date L3 (Change billing [place] 40212 from 03938, continue 47757 from H+P billing.)
--- NOTE | 2023-08-19 05:35 | CON.PCM.CA_ITS ---
Assessment & Plan Assessment/Plan (1) STEMI (ST elevation myocardial infarction): QUALIFIERS: Involved coronary artery: unspecified coronary artery Qualified Code(s): I21.3 - ST elevation (STEMI) myocardial infarction of unspecified site PLAN: Patient has multivessel CAD. ANDER-3 flow in all vessels at this time. Patient is being admitted to the CCU. 2 hours after right radial hemostasis we will restart her heparin. Patient will be transferred to a tertiary facility for heart team approach to revascularization for multivessel coronary artery disease. HPI Consult Data Date of Consult: 08/19/23 HPI Narrative Reason for Consultation: STEMI HPI Narrative: MARTHA JAVIER, is a 63 F who presents with chest pain. Chest pain has been going on and off since Wednesday. This morning it became more severe and was not getting any better so patient came to the emergency room. EKG in the emergency room revealed ST depression in the anterior leads and ST elevation in the la teral leads. STEMI alert was called and patient was brought emergently to the [facility] for coronary angiography which revealed triple-vessel coronary artery disease with ANDER-3 flow in all the vessels. Patient's chest pain also has improved and is mild at this time. Decision was made to transfer the patient to a facility with CABG capability for heart team approach for revascularization. Review of systems: All systems reviewed. All system negative except as in HPI [facility] Medical History (Updated 08/19/23 @ 05:[address] Zara Limon MD) Basal cell carcinoma (BCC) Fibromyalgia HTN (hypertension) Morbid obesity Obesity Tachycardia with hypertension Type II diabetes mellitus Home Medications atenolol 25 mg tablet 25 mg PO DAILY 01/08/14 [History Last Taken 01/07/14] Allergy/AdvReac Type Severity Reaction Status Date / Time prednisone AdvReac Rash Verified 08/19/23 03:47 Family History Mother Rheumatoid arthritis Father CAD (coronary artery disease) Heart disease Hypertension Myocardial infarction Surgical History H/O tubal ligation History of tonsillectomy and adenoidectomy Social History household members: none Smoking Status: Never smoker alcohol intake: never substance use type: does not use Physical Exam Const alert and oriented x3 HEENT normocephalic Eyes no scleral icterus Resp normal respiratory effort Cardio regular rate Risk Stratification Risk Stratification Applicable: No Objective Data Vital Signs: Vital Signs Temp Pulse Resp BP Pulse Ox O2 Del Method 97.9 F 78 18 143/74 H 98 Room Air 08/19/23 04:17 08/19/23 04:17 08/19/23 04:17 08/19/23 04:17 08/19/23 04:17 08/19/23 03:43 Oxygen Delivery Method Room Air Weight: 219 lb 5.759 oz Body Mass Index (BMI) 40.1 Lab / Micro Data 08/19/23 03:48 08/19/23 03:48 Labs: Laboratory Results - last 24 hr 08/19/23 03:48: WBC 12.6 H, RBC 4.83, Hgb 13.8, Hct 42.9, MCV 88.8, MCH 28.6, MCHC 32.2, RDW Std Deviation 42.6, RDW Coeff of Jemraine 13.2, Plt Count 323, MPV 9.9, Immature Gran % (Auto) 0.300, Neut % (Auto) 45.6 L, Lymph % (Auto) 41.3 H, [place] % (Auto) 8.4, Eos % (Auto) 3.7, Baso % (Auto) 0.7, Absolute Neuts (auto) 5.7, Absolute Lymphs (auto) 5.19 H, Nucleated RBC % 0, Differential Comment SCANNED, PT 12.5, INR 0.9, APTT 24.7, Sodium 144, Potassium 3.0 L, Chloride 108 H, Carbon Dioxide 28.0, Anion Gap 8, BUN 13, Creatinine 0.81, Estim Creat Clear Calc 55.49, Est GFR (MDRD) Af Amer 92, Est GFR (MDRD) Non-Af 76, BUN/Creatinine Ratio 16.1, Glucose 159 H, Calcium 8.6, Magnesium 2.0, Troponin I High Sens 447 H* Rhythm Strip Rhythm Strip: Sinus Rhythm Rate: 84 Ectopy: None Cardiology Labs/Tests 08/19/23 03:48: WBC 12.6 H, RBC 4.83, Hgb 13.8, Hct 42.9, MCV 88.8, MCH 28.6, MC HC 32.2, Plt Count 323, MPV 9.9, Immature Gran % (Auto) 0.300, Neut % (Auto) 45.6 L, Lymph % (Auto) 41.3 H, [place] % (Auto) 8.4, Eos % (Auto) 3.7, Baso % (A uto) 0.7, Absolute Neuts (auto) 5.7, Nucleated RBC % 0, PT 12.5, INR 0.9, APTT 24.7, Sodium 144, Potassium 3.0 L, Chloride 108 H, Carbon Dioxide 28.0, Anion Gap 8, BUN 13, Creatinine 0.81, Est GFR (MDRD) Af Amer 92, Est GFR (MDRD) Non-Af 76, BUN/Creatinine Ratio 16.1, Glucose 159 H, Calcium 8.6, Magnesium 2.0 Rhythm: EKG: ECHO: Stress Test: Cardiac Cath: PCI: CT Surgery: Holter monitor: EPS: PPM: CXR: Chest CT Scan:
[2023-08-19] MEDS: 0.9% Saline Lock 10 ML Syringe IV (05:58)
[2023-08-19] MEDS: Potassium Chloride Oral Tablet 20 MEQ 40 MEQ PO (05:59)
[2023-08-19] MEDS: 0.9% Normal Saline (1000mL) 1,000 ML 100 ML IV (05:59)
[2023-08-19 06:21] LABS: Troponin-I HS 2528 pg/mL (3.0-54.0)
[2023-08-19] MEDS: Nitroglycerin (INPATIENT USE) 0.4 MG TAB.SUBL SL (06:54)
--- NOTE | 2023-08-19 08:07 | CL.D_ITS ---
Patient Name: MARTHA JAVIER Study Date: 08/19/2023 Performing: Dori Limon MD Ht: 62 inches 157.48 cm : 1960 Wt: 219.6 lbs 99.5 kg Age: 63 Gender: female BSA: 1.99 PROCEDURE(S) PERFORMED [id number])LHC/COR/LV CLINICAL PROFILE AND INDICATIONS Heart Failure: None CAD Presentations: STEMI. Symptom onset Date/Time: 08/19/23 Time Not Available CONCLUSIONS Multivessel coronary artery disease as described. EF is 40 to 45% with regional wall motion abnormalities as described. No significant aortic stenosis or mitral regurgitation. RECOMMENDATIONS CT surgery consult for heart team approach for revascularization. DESCRIPTION OF PROCEDURE The patient arrived to the procedure lab. The risks and benefits of the procedure as well as a full description of our services here and current unavailability of surgical backup were fully explained to the patient and/or their significant other prior to the catheterization. The Timeout was completed, verifying the correct patient and procedure. The patient's procedural site was prepped and draped in the usual fashion. Local anesthetic was given subcutaneously to left radial region with Lidocaine 2%. Using a modified Seldinger technique, arterial access was obtained via the right radial artery, a 6Fr sheath was inserted. Left Coronary Artery selective angiography was performed in multiple views using a 5 Fr. JL3.5 catheter. Left Ventriculography was performed in CARLOS projection using a 5 Fr. JR4 catheter. LV to AO pullback pressures were then recorded. Right Coronary Artery selective angiography was then performed in multiple views using a 5 Fr. JR 4 catheter.The arterial sheath was pulled and a TR Band was applied for hemostasis. 12cc of air applied CORONARY ANGIOGRAPHY DOMINANCE: Co- Dominant LEFT HEART ASSESSMENT Left Ventricular Ejection Fraction: by LV Gram 40-45 % Hypokinesis of the anterolateral and inferomedial goodman. The apex and base are sunny well. LEFT MAIN: Mild luminal irregularities LEFT ANTERIOR DESCENDING ARTERY: PROX LAD: 60 % Stenosis MID LAD: 70-80 % Stenosis DIAGONAL 1: Ostial - 90 % Stenosis CIRCUMFLEX ARTERY: PROX CIRC: 80 % Stenosis OM 1: Ostial - 80-90 % Stenosis RIGHT CORONARY ARTERY: MID RCA: 90 % Stenosis VALVE FINDINGS: No Aortic Valve Stenosis No Mitral Insufficiency COMPLICATIONS No Complications PROCEDURE MEDICATIONS Oxygen: 2 L/min via nasal cannula Heparin given IA 08/19/2023 04:48:52 Potassium Chloride 10 mEq in 100cc NS 08/19/2023 04:42:34 Verapamil 2.5mg, Ntg 100mcgs, 3000 units of Heparin given IA 08/19/2023 04:48:52 SUMMARY OF HEMODYNAMIC DATA Time AIR REST ECG 04:41:07 AO 142/68 (89) SA 04:50:40 AO 105/61 (81) 04:50:51 LV 147/-5, 11 04:53:35 LV 152/-6, 12 04:53:44 LV 134/-2, 11 04:54:36 LVp 134/0, 18 04:54:44 AOp 136/62 (96) 04:54:51 Signed By Dori Limon MD On 08/19/2023 08:06:34 Dori Limon MD
--- NOTE | 2023-08-19 08:13 | CASEMGMT ---
Insurance review for hospitals In-network with [place] insurance if transfer is recommended is as follows:. [facility], [facility], [facility], [facility], [facility]), [facility], [facility], and . Concetta Cedeno, Discharge Planning Asst.
[2023-08-19] MEDS: Heparin Injection (Vial) 5,000 UNIT/ML VIAL 7500 UNIT IV (08:39)
[2023-08-19] MEDS: HEPARIN/D5w 25,000 UNITS 25,000 UNITS/250 ML IV.SOLN. 14 UNITS CONT INF (08:40)
[2023-08-19] MEDS: Aspirin 81 MG TAB.CHEW PO (08:41)
[2023-08-19] MEDS: TICAGRELOR 90 MG TABLET PO (08:41)
[2023-08-19] MEDS: Atenolol 25 MG Tablet PO (08:42)
[2023-08-19 09:10] LABS: Bedside Glucose 172 mg/dL (74-106)
[2023-08-19 11:36] LABS: Troponin-I HS 25470 pg/mL (3.0-54.0)
[2023-08-19 11:39] LABS: Hemoglobin A1c 6.5 % (3.8-5.6)
[2023-08-19 12:19] LABS: AST(SGOT) 24 U/L (15-37); Alanine Aminotransfer ALT/SGPT 28 U/L (13-56); Albumin, Serum 3.7 g/dL (3.2-5.0); Alkaline Phosphatase 74 U/L (45-117); Globulin 3.9 g/dL (2.2-4.2); Protein, Total 7.6 g/dL (6.4-8.2)
[2023-08-19 16:37] LABS: Partial Thromboplast Time 217.4 Seconds (24.1-36.2)
--- NOTE | 2023-08-19 17:10 | PN.HOSP_ITS ---
Hospitalist Note Patient seen at bedside this morning in the ICU, multiple family members present. Patient was sitting comfortably in bed and in no acute distress. Patient reported mild chest discomfort at that time but otherwise felt fine. Vital signs were stable. Patient has been accepted to [facility] for cardiothoracic surgery evaluation for bypass grafting, awaiting a bed there. Will continue to monitor closely in the ICU here until transfer. If patient remains here tomorrow, full progress note to follow at that time.
[2023-08-19 17:50] LABS: Bedside Glucose 131 mg/dL (74-106)
== END 2023-08-19 20:45 | disposition short-term general hospital (02) | DRG 281 ==
LOC: ED 03:52 → ICU 04:25
PROVIDERS: Admitting Provider Family Medicine; Emergency Provider Emergency Medicine; PCP Internal Medicine; Referring Provider Specialist; Visit Provider Hospitalist
DX: I21.3 ST elevation (STEMI) myocardial infarction of unspecified site (principal); Z68.41 Body mass index [BMI] 40.0-44.9, adult; E11.9 Type 2 diabetes mellitus without complications; E66.01 Morbid (severe) obesity due to excess calories; I10 Essential (primary) hypertension; E87.6 Hypokalemia; I25.10 Atherosclerotic heart disease of native coronary artery without angina pectoris; M79.7 Fibromyalgia; Z79.899 Other long term (current) drug therapy
CPT/HCPCS: 80048; 80076; 82962; 83036; 83735; 84484; 85025; 85610; 85730; 93005; 93306; 93458; 99285; J7030; J7040; Q9957; Q9967; A4216; C1769; C1894; C8929

== ENCOUNTER → 2023-09-30 | Outpatient (CLI) | payer BC, SELFPAY ==
[2023-09-30 15:40] LABS: Absolute Neutrophil Count 9.2 X10^3/uL (2.0-7.7); Basophil# 0.09 X10^3/uL; Basophil% 0.7 % (0-1); Eosinophils% 6.6 % (0-5); Hematocrit 41.8 % (37-47); Hemoglobin 12.9 g/dL (12.0-15.0); Lymphocyte % 18.4 % (19-41); Mean Corp Hgb Conc 30.9 g/dL (32-36); Mean Corpuscular Hgb 26.5 pg (27.0-32.0); Mean Corpuscular Volume 85.8 fL (81-99); Mean Platelet Vol. 10.1 fl (6.2-12.0); Monocyte# 0.89 X10^3/uL; Monocyte% 6.5 % (0-10); NRBC Flagged by Analyzer 0 % (0-5); Neutrophil % 67.5 % (47-70); Platelet Count 320 K/mm3 (150-450); RBC Distribution Width CV 13.9 % (11.6-14.6); RBC Distribution Width SD 43.3 fl (35.1-43.9); Red Blood Count 4.87 M/mm3 (4.2-5.4); White Blood Count 13.6 K/mm3 (4.4-11.0)
[2023-09-30 16:40] LABS: ALB/GLOB Ratio 0.9 RATIO (0.9-2.4); AST(SGOT) 27 U/L (15-37); Alanine Aminotransfer ALT/SGPT 19 U/L (13-56); Albumin, Serum 3.8 g/dL (3.2-5.0); Alkaline Phosphatase 76 U/L (45-117); Anion Gap 6 (5-15); BUN 11 mg/dL (7-18); BUN/Creat Ratio 11.2 RATIO (10-20); Calcium,Total 9.3 mg/dL (8.5-10.1); Chloride 107 mmol/L (98-107); Creatinine, Serum 0.98 mg/dL (0.55-1.02); EST Glomerular Filtration Rate 61 mL/min (>60); Est Glom Filt Rate - Afr Amer 73 mL/min (>60); Globulin 4.1 g/dL (2.2-4.2); Glucose 241 mg/dL (74-106); Magnesium 2.2 mg/dL (1.6-2.6); Potassium 3.1 mmol/L (3.5-5.1); Protein, Total 7.9 g/dL (6.4-8.2); Sodium Level 139 mmol/L (136-145); T4 Free Direct 1.01 ng/dL (0.76-1.46); Thyroid Stim Hormone (TSH) 1.59 uIU/mL (0.358-3.74)
== END | disposition home or self-care (01) ==
LOC: LAB 15:18
PROVIDERS: PCP Internal Medicine; Referring Provider Nurse Practitioner Family; Visit Provider Nurse Practitioner Family
DX: I47.10 Supraventricular tachycardia, unspecified (principal); E78.2 Mixed hyperlipidemia; Z95.1 Presence of aortocoronary bypass graft
CPT/HCPCS: 36415; 80053; 83735; 84439; 84443; 85025

== ENCOUNTER → 2023-10-20 | Outpatient (CLI) | payer BC, SELFPAY ==
[2023-10-20 10:45] LABS: AST(SGOT) 17 U/L (15-37); Alanine Aminotransfer ALT/SGPT 13 U/L (13-56); Albumin, Serum 3.5 g/dL (3.2-5.0); Alkaline Phosphatase 75 U/L (45-117); Anion Gap 8 (5-15); BUN 13 mg/dL (7-18); BUN/Creat Ratio 11.4 RATIO (10-20); Bilirubin, Direct 0.16 mg/dL (0.00-0.30); Calcium,Total 9.1 mg/dL (8.5-10.1); Chloride 107 mmol/L (98-107); Cholesterol 110 mg/dL (200); Creatinine, Serum 1.14 mg/dL (0.55-1.02); EST Glomerular Filtration Rate 51 mL/min (>60); Est Glom Filt Rate - Afr Amer 62 mL/min (>60); Globulin 3.9 g/dL (2.2-4.2); Glucose 222 mg/dL (74-106); High Density Lipoprotein 51 mg/dL; Potassium 3.8 mmol/L (3.5-5.1); Protein, Total 7.4 g/dL (6.4-8.2); Sodium Level 139 mmol/L (136-145); Triglycerides 107 mg/dL; Very Low Density Lipoprotein 21 mg/dL (5-40)
== END | disposition home or self-care (01) ==
LOC: LAB 08:54
PROVIDERS: PCP Internal Medicine; Referring Provider Nurse Practitioner Family; Visit Provider Nurse Practitioner Family
DX: E87.6 Hypokalemia (principal); E11.69 Type 2 diabetes mellitus with other specified complication; I47.10 Supraventricular tachycardia, unspecified; E78.2 Mixed hyperlipidemia; I25.10 Atherosclerotic heart disease of native coronary artery without angina pectoris
CPT/HCPCS: 36415; 80048; 80061; 80076

== ENCOUNTER → 2023-11-15 | Outpatient (CLI) | payer BC, SELFPAY ==
--- NOTE | 2023-11-15 09:43 | PCM.CR.HP2 ---
CR - History & Physical General Arrival date:: 11/15/23 Arrival time:: 09:43 Date of Referral:: 09/30/23 Date of CR Evaluation:: 11/15/23 Referring Physician: Dr. Escalera Primary Diagnosis: CABG History of Present Cardiac Event Onset Date Coronary Artery Bypass Graft:: Yes Vessel: CABG X3 ORTIZ to mid LAD reverse saph vein to RCA and left radial to OM1 Medications Ambulatory Orders Medication Instructions Recorded aspirin 81 mg tablet,delayed 81 mg PO DAILY 09/30/23 release (Adult Low Dose Aspirin) diltiazem HCl 120 mg capsule,24 120 mg PO .PRN PRN tachycardia #30 10/08/23 hr,extended release caps atenolol 25 mg tablet 25 mg PO QHS #30 tabs 10/19/23 rosuvastatin 20 mg tablet 20 mg PO DAILY #90 tabs 10/26/23 Allergies Allergies prednisone Adverse Reaction (Verified 09/30/23 13:44) Rash Sleep Disorder Evaluation Hx of Sleep Apnea: No Do you snore loudly (louder than talking or can be heard through closed doors)?: No Do you often feel tired/ fatigued/ sleepy during daytime?: No Has anyone observed you stop breathing during sleep?: No History of Hypertension (for STOP score): Yes STOP Results: Negative Advanced Directives Advanced Directives Power of Swage Toolsetter: No Living Will: No Advance Directives Information Provided: No Advance Directives on File: No DNR Order?:: No Past Medical History Covid-19 Screening Physicial Symptoms Other Clinical Concerns Exposure Risk Pertinent Comorbidities Has a serious heart condition:: Yes Severely obese (Body Mass Index of 40 or higher):: Yes Diabetic:: Yes Past Medical Illness Past Medical History (Updated 10/01/23 @ 09:42 by Honorio Farah NP, [employer] DE[employer]AD[employer]-C) Atherosclerosis of [place] coronary artery of [place] heart without angina pectoris I25.10 Basal cell carcinoma (BCC) C44.91 Essential hypertension I10 Fibromyalgia M79.7 Mixed hyperlipidemia E78.2 Morbid obesity E66.01 Obesity E66.9 STEMI (ST elevation myocardial infarction) I21.3 Tachycardia with hypertension R00.0, I10 Type II diabetes mellitus E11.9 Past Surgical History Past Surgical History (Updated 09/30/23 @ 14:00 by Honorio Farah NP, [employer] DEBEADER-C) H/O tubal ligation Z98.51 History of tonsillectomy and adenoidectomy Z90.89 S/P CABG x 3 Z95.1 CABG x 3 with ORTIZ to mid LAD reverse saphenous vein graft to RCA, and left radial artery to OM1 08/24/[address] [facility] with Dr. Britton; Surgical History: herniorrhaphy and tonsillectomy Family History Summary Family History Mother Rheumatoid arthritis Father CAD (coronary artery disease) Heart disease Hypertension Myocardial infarction Social History Smoking History Smoking Status: Never smoker Hx Tobacco Use: No Alcohol Use Alcohol Usage: No Substance Abuse Hx Substance Use: No Occupation Occupation (List type of work in comments):: Retired Hobbies, Recreation, Social Activities Hobbies: None Social Environment Status Marital Status: Current Living Arrangements Living Environment:: Alone Children How many children do you have?: 1 Do any of your children live nearby?: Yes Safety Do you feel safe in your surroundings?: Yes Assistance Do you need any assistance at home?: no Review of Systems Review of Systems Hints Review of Present Symptoms: Reports Shortness of Breath at Rest, Shortness of Breath with Exertion, Operative Discomfort, Dizziness/Lightheadedness, Fatigue, Appetite - Normal and Appetite - Special Diet; Denies PVD, Angina, Wound Healing, Heart Arrhythmia/Irregularities, Sleep - Normal or Sexual Changes Pain Is Patient Pain Free?: Yes Risk Factor Assessment Chief Complaint Chief Complaint: CABG Vital Signs Pulse Ox: 99 Blood Pressure: 146/85 Pulse Pulse Rate: 80 Pulse Rhythm: Regular Hypertension How long have you been treated?: 30 years Blood Pressure Sitting - Right Arm: 146/85 Stress Stress: Home/Family ( 3 years ago) Diabetes Diabetic History: Type II (pt is not on meds. diet and exercise controlled) Nutrition Referral for Diabetes: No Obesity Height: 5 ft 2 in Weight:: 202 lb Weight in Pounds: 202.0 lbs Body Mass Index (BMI): 36.9 Physical Inactivity Physical Inactivity: Recreational activity (pt is walking some) Risk Stratification Risk Guidelines: Lowest Risk: Risk Factor for Smoking, Moderate Risk: Risk Factor for Sedentary Lifestyle and Risk Factor for Depression and Highest Risk: Risk Factor for Dyslipidemia, Risk Factor for Diabetes, Risk Factor for Obesity and Risk Factor for Hypertension For Smoking Smoking Risk Guidelines For Dyslipidemia Dyslipidemia Risk Guidelines For Diabetes Mellitus Diabetes Risk Guidelines For Obesity/Overweight Obesity/Overweight Risk Guidelines For Hypertension Hypertension Risk Guidelines For Sedentary Lifestyle Sedentary Lifestyle Risk Guidelines For Depression Depression Risk Guidelines Family History Family History Mother Rheumatoid arthritis Father CAD (coronary artery disease) Heart disease Hypertension Myocardial infarction Motivation Motivation to Participate On a scale of 1 to 10, how prepared are you to commit to attending program?: 7 What do you see as barriers to successfully being able to complete the program?: nothing What do you see as the benefits of succesfully completing the program? In other words, what do you hope to get out of participating in the program?: more energy, stronger heart Are there issues you are dealing with that will interfere with completing the program?: nothing Do you have a spouse or signficant other, family or friends who will help support you to complete the program?: yes
[2023-11-15 09:52] VITALS: BP 146/85
--- NOTE | 2023-11-15 09:52 | PCM.CR.ITP ---
Diagnosis General Information Admitting Diagnosis: CABG Personal Learning Style:: Audio/Visual Stage of change r/t lifestyle modifications:: Contemplation Gave educational material for:: Treating Heart Disease, How The Heart Works, What it means to have Heart Disease, How Coronary Artery Disease is Diagnosed, Heart Procedures, What Heart Medications Do, Risk Factors & Modifications, Living an Active Life, Nutrition, Emotions & Heart Disease, Stress Management & Relaxation and Sleep Disorders & Heart Disease Education/Goals Cardiac Rehabilitation Goals Personal Goals: Initial Assessment: Improve energy level, Participate in home exercise program, Get back to work, or to resume activities faster, Improve knowledge of cardiac disease, Improve muscle strength and endurance, Improve diet and eating habits (eat healthier) and Control risk factors (learn risk factor modification) Scale for measuring improvement of personal goals Diagnosis & Disease Process Outcomes/Goals: Pt IDs own risk factors & lifestyle modifications by Session 10, Verbalizes symptoms of angina & response by session 3., Pt independently manages and Other Additional Outcomes/Goals: Plan/Interventions: Assist Pt to ID & engage in lifestyle modification to reduce CVD risk, Instruct on individual risk factors, Review symptoms of angina & emergency actions, Review secondary diagnosis & identify educational needs. and Other see comment 30 day Reassessments:: Not Met 30 day Reassessments:: Not Met 30 day Reassessments:: Not Met 30 day Reassessments:: Not Met Final Reassessments:: Not Met Safety Referral to Physical Therapy: No Referral to [facility] Case Management: No Fall Risk Assessed:: Yes Assistive Devices:: None Exercise - Initial Assessment Visit Date of Eval: 11/15/23 (initial eval ) Mets: Pre-: >3 METS for 30 minutes by discharge, >5 METS for 30 minutes by discharge, >7 METS for 30 minutes by discharge and Unable to meet goal due to: (see comment below) Physician Prescribed Exercise Modalities: Treadmill, Airdyne, NuStep, SciFit and Lateral Sewer Maintenance Supervisor Frequency: 2x/week for 18 weeks [36 sessions] and 3x/week for 12 weeks [36 sessions] Intensity: 60-80% of age predicted maximum heart rate reserve Duration: 30 - 45 minutes Current METSs:: 3.0 Target Heart Rate:: 94-109 Resting Blood Pressure: 146/85 EKG Type: ST nonspecific ST depression with T abnormality Outcomes & Goals Goals:: Verbalizes understanding of THR, RPE & goal METS by session 6, Documents in home exercise log/reports 30 min aerobic 5 day/wk by DC, Demonstrates accurate pulse taking by DC and Other additional outcome/goals: see below Intervention & Plan Exercise Program Goals: Instruct on personal THR & RPE, Instruct on MET level & personal MET goal, Show patient to take own pulse /validate performance until accurate, Instruct on home exercise and Other additional plan/int Physical Activity Home Exercise Physical Activity - Home Exercise: Safe Exercise, Warm-up, Self-monitoring, Cool-Down, Home Exercise > 30 min Daily and Sitting Time <3 hours/daily Outcomes & Goals Outcomes/Goals: Demonstrates correct Warm-up/exercise Cool-Down (S3) if = 2.5 METs, Verbalizes symptoms of exercise intolerance by Session 3 (S3), Demonstrate safe equipment use (S3) & follows exercise prescrition (6) and Other: See below Intervention & Plan Plan/Intervention: Instruct warm-up & cool-down if exercising at > 2 METs, Instruct on symptoms of exercise intolerance & actions to take, Instruct & monitor on saf, Assess intial functional capacity & safety risk and Other See below Nutrition - Initial Assessment Program Goals Nutrition Program Goals Patient has diagnosis of Hyperlipidemia (ICD E78)?: Yes Visit Date of Eval: 11/15/23 (initial eval ) Cholesterol/Lipids (Other Core Measures) Determine presence & major risk factors that modify LDL goal: Hypertension or hypertensive medication, Low HDL cholesterol <40 mg/dL*, Family history of premature CHD in Male < 55 years: female <65 yearsFa and Age men > 45 years; women >/= 55 years Outcomes/Goals: Pt IDs own risk factors & lifestyle modifications by Session 10, Verbalizes symptoms of angina & response by session 3., Pt independently manages and Other Additional Outcomes/Goals: Intervention/Plan: Advocate for lipid panel cholesterol medication if applicable, Instruct on personal lipid levels & lipid goals/NCEP guidelines, Instruct on cholesterol and Other additional plan/int Referral to dietitian:: No (declines) Diabetes (Other Core Measures) Diabetes Type: Diagnosis Type II ICD-10 E11 Insulin dependent injection/pump?: No Non-Insulin Dependent?: No Do you monitor your blood sugar at home?: Yes (not every day) Referral to Diabetic Clinic:: No Outcomes/Goals:: Able to state symptoms of, Able to state, Able to state and Other additional Intervention/Plan:: Instruct on, Refer to, Instruct on and Other Weight Mgt (Other Care) Height: 5 ft 2 in Weight:: 202 lb BMI: 36.9 Diagnosis Overweight/Obesity BMI> 30% ICD-10 E66: Yes Diagnosis High BMI/Morbid Obesity BMI> 35% ICD-10 Z68: Yes Outcomes/Goals: Pt sets, maintains & shows weight loss goal & trend during rehab and Other additional outcomes/goals Intervention/Plan: Instruct on ideal BMI & set weight loss goal w/patient, Assist pt to ID & incorporate diet changes for weight loss by S9, Refer to Structured Weight Loss program as appropriate, Encourage goal of using 250-300dcal per session for weight loss and Other additional plan/interventions Healthy Eating Habits Will attend diet classes:: Yes Outcomes/Goals:: Consume diet rich in vegs,fruits,whole grain/high fiber,fish,lean meat, Limit sat/trans fats,cholesterol & added salts & sugars and Other additional outcome/goals: Intervention/Plan:: Assess current eating habits and Other Additional plan/interventions Education Gave educational materials for:: Signs & symptoms of hypoglycemia, Signs & symptoms of hyperglycemia, Relate diabetes to coronary artery disease and Healthy eating Core - Initial Assessment Visit Date of Eval: 11/15/23 (initial eval ) Medication Compliance Preventative Medication(s):: Aspirin, Statin/lipid and Beta leena H/O mental health issues: depression, anxiety, or addiction?: No Doesn?t believe in the benefits of treatment?: No Believes medications are unnecessary or harmful?: No Has a concern about medication side effects?: No Expresses concern over the cost of medications?: No Outcomes/Goals: Verbalizes medications,desired effect & common side effects @ DC, Pt self-reports following medication regimen, Keeps card in wallet w/medications listed by DC and Other additional outcome/goals: Interventions/plans: Instruct on medication effects & side effects, Review medication list w/patient every two weeks, Instruct importance of taking meds as ordered & assist problem solving and Other additional Tobacco Use Tobacco Use: Non-smoker Hypertension Hypertension Diagnosis:: Hypertension ICD-10 I10 Resting Blood Pressure:: 146/85 [place] [employer] Hypertension Guidelines Outcomes/Goals: Able to verbalize/achieve optimal blood pressure <130/80, Incorporates diet changes & exercise for blood pressure control by DC and Other additional outcomes/goals Interventions/plan: Instruct on optimal blood pressure, hypertension & medications, Instruct on effects of sodium, alcohol, stress, exercise &hypertension and Other additional plan/interventions Tobacco Cessation Referral Smoking Cessation Referral:: No Education Schedule Given:: Yes Psychosocial - Initial Assess VIsit Date of Eval: 11/15/23 (initial eval ) History of previous Mental disease:: No Target Goals Target Goals Outcomes/Goals: See list Psychosocial Outcomes/Goals:: ID's personal stressors & 2 strategies to manage stress by discharge and Other Additional outcome/goals: Intervention/Plan: See List Interventions/Plan:: Assess stressors,coping strategies & signs of derpression on admission, Instruct/assist pt to develop coping & personal stress Mgt strategies, Refer to Behavioral Health if appropriate, Refer to Physician if appropriate, Instruct patient to recognize signs & symptoms of depression, Instruct patient to recog and Other additional plan/intervention Patient Health Questionnaire PHQ-9 Screening Initial Assessment: 1. Little interest or pleasure in doing things: Not at all 2. Feeling down, depressed, or hopeless: Not at all 3. Trouble falling or staying asleep, or sleeping too much: Several days 4. Feeling tired or having little energy: Several days 5. Poor appetite or overeating: Not at all 6. Feeling bad about yourself -- or that you are a failure or have let yourself or your family down: Not at all 7. Trouble concentrating on things, such as reading the newspaper or watching television: Not at all 8. Moving or speaking so slowly that other people could have noticed. Or the opposite - being so fidgety or restless that you have been moving around a lot more than usual: Not at all 9. Thoughts that you would be better off , or of hurting yourself in some way: Not at all How difficult have these problems made it for you to do your work, take care of things at home, or get along with other people?: Somewhat difficult Total Score: 2 LOLA-Q SV Test Statements CAD is a disease of the arteries in the heart: False Examples of risk factors for heart disease: True Angina is chest pain or discomfort: I Don't Know The benefits of resistance training include: I Don't Know Eating more meat and dairy products: I Don't Know Anti-platelet medications such as aspirin are important: I Don't Know The only effective way to manage stress: False An exercise warm-up slowly increases heart rate: I Don't Know Prepared, processed foods usually have high sodium: True Depression is common after a heart attack: I Don't Know The statin medications lower cholesterol: True To control blood pressure, lower the amount of sodium: I Don't Know If someone gets chest discomfort during walking: False Transfats are partially hydrogenated vegetable oils: I Don't Know Sleep apnea that is not treated increases the risk: False To control cholesterol, one should become a vegetarian: False Someone knows if he/she is exercising at the right level: I Don't Know Diabetes cannot be prevented with exercise & health eating: I Don't Know Stress is a large risk for heart attack: I Don't Know A diet that can help lower blood pressure is rich in: True Total Score Total Correct Responses: 9 Self-Efficacy 6-Item Scale Initial Assessment: We would like to know how confident you are in doing certain activities. Please select your confidence level for: Fatigue Select Number: 3 Physical Discomfort or Pain Select Number: 3 Emotional Distress Select Number: 9 Other Symptoms or Health Problems Select Number: 9 Different Tasks and Activities Select Number: 9 Medication Select Number: 9 Total Score:: 7 Nutrition Survey Nutrition Survey Instructions Scoring Instructions Nutrition Survey Initial: Have you lost >10 lbs over the past 2 months without trying?: Yes Are you following a special diet at home for diabetes, low fat, or low salt?: No Are you interested in meeting with a dietitian for help understanding your diet?: No Do you eat less than 3 meals a day?: No Do you eat fatty meats (rocha, sausage, ribs, etc), fried foods, desserts, large amounts of salad dressings, margarine, butter, or cheese most days?: No Do you have food allergies? [Enter types in comment field]: No Do you eat in restaurants more than 3 times a week?: No Do you season food with salt, seasoning salt, or garlic salt?: Yes Do you used canned, boxed, frozen meals, or soups, seasoning packets?: No Total Score:: 2 Exercise - Final/Discharge Physician Prescribed Exercise Modalities: Treadmill, Airdyne, NuStep, SciFit and Lateral Sewer Maintenance Supervisor Frequency: 2x/week for 18 weeks [36 sessions] and 3x/week for 12 weeks [36 sessions] Intensity: 60-80% of age predicted maximum heart rate reserve Current METSs:: 3.0 Target Heart Rate:: 94-109 Nutrition - 30-Day Assessment Weight Mgt (Other Care) Height: 5 ft 2 in Weight:: 202 lb BMI: 36.9 Nutrition - 60-Day Assessment Weight Mgt (Other Care) Height: 5 ft 2 in Weight:: 202 lb BMI: 36.9 Core - Final Assessment Hypertension Resting Blood Pressure:: 146/85 [place] [employer] Hypertension Guidelines Core - 60-Day Assessment Hypertension Resting Blood Pressure:: 146/85 [place] [employer] Hypertension Guidelines Psychosocial - 30-Day Assess Target Goals Target Goals Psychosocial - 60-Day Assess Target Goals Target Goals Psychosocial - 90-Day Assess Target Goals Target Goals Psychosocial - Final Assessmen Target Goals Target Goals Nutrition - 90-Day Assessment Weight Mgt (Other Care) Height: 5 ft 2 in Weight:: 202 lb BMI: 36.9 Nutrition - Final Assessment Program Goals Patient has diagnosis of Hyperlipidemia (ICD E78)?: Yes Weight Mgt (Other Care) Height: 5 ft 2 in Weight:: 202 lb BMI: 36.9
[2023-11-15 09:56] VITALS: BP 146/85
[2023-11-15 10:03] VITALS: BP 146/85
[2023-11-15 10:24] VITALS: BP 146/85; PULSE 80; O2SAT 99
[2023-11-15 10:57] VITALS: BMI 36.9
[2023-11-15 10:58] VITALS: BMI 36.9
== END | disposition home or self-care (01) ==
LOC: CR 09:33
PROVIDERS: PCP Internal Medicine; Referring Provider Internal Medicine Cardiovascular Disease; Visit Provider Internal Medicine Cardiovascular Disease
DX: Z95.1 Presence of aortocoronary bypass graft (principal)

== ENCOUNTER 2023-12-03 11:30 | Outpatient (RCR) | payer BC, SELFPAY ==
[2023-11-15 10:57] VITALS: BMI 36.9
== END 2023-12-05 23:59 ==
LOC: CR 11:30
PROVIDERS: PCP Internal Medicine; Referring Provider Internal Medicine Cardiovascular Disease; Visit Provider Internal Medicine Cardiovascular Disease
DX: I25.10 Atherosclerotic heart disease of native coronary artery without angina pectoris (principal); I95.1 Orthostatic hypotension; E78.2 Mixed hyperlipidemia; I10 Essential (primary) hypertension; E11.59 Type 2 diabetes mellitus with other circulatory complications; I47.10 Supraventricular tachycardia, unspecified
CPT/HCPCS: 93798

== ENCOUNTER 2023-12-31 11:30 | Outpatient (RCR) | payer BC, SELFPAY ==
[2023-11-15 10:57] VITALS: BMI 36.9
--- NOTE | 2023-12-15 08:21 | CR.ITP_ITS ---
Exercise - Initial Assessment Visit Session #:: 10 Nutrition - Initial Assessment Weight Mgt (Other Care) Height: 5 ft 2 in Weight:: 203 lb BMI: 37.1 Psychosocial - Initial Assess Target Goals Target Goals Patient Health Questionnaire PHQ-9 Screening 30-Day Re-eval Assessment: 1. Little interest or pleasure in doing things: Not at all 2. Feeling down, depressed, or hopeless: Not at all 3. Trouble falling or staying asleep, or sleeping too much: Several days 4. Feeling tired or having little energy: Several days 5. Poor appetite or overeating: Not at all 6. Feeling bad about yourself -- or that you are a failure or have let yourself or your family down: Not at all 7. Trouble concentrating on things, such as reading the newspaper or watching television: Not at all 8. Moving or speaking so slowly that other people could have noticed. Or the opposite - being so fidgety or restless that you have been moving around a lot more than usual: Not at all 9. Thoughts that you would be better off , or of hurting yourself in some way: Not at all How difficult have these problems made it for you to do your work, take care of things at home, or get along with other people?: Somewhat difficult Total Score: 2 Self-Efficacy 6-Item Scale 30-Day Re-eval Assessment: We would like to know how confident you are in doing certain activities. Please select your confidence level for: Fatigue Select Number: 3 Physical Discomfort or Pain Select Number: 3 Emotional Distress Select Number: 9 Other Symptoms or Health Problems Select Number: 9 Different Tasks and Activities Select Number: 9 Medication Select Number: 9 Total Score:: 7 Nutrition Survey Nutrition Survey Instructions Scoring Instructions Exercise - 30-day Assessment Visit Date of Eval: 12/15/23 Session #:: 10 Physician Prescribed Exercise Modalities: Treadmill and NuStep Frequency: 3x/week for 12 weeks [36 sessions] Intensity: 60-80% of age predicted maximum heart rate reserve Duration: 30 - 45 minutes Current METSs:: 3.1 Target Heart Rate:: 94-109 Current RPE:: 13 Maximum Excercise HR:: 93 Resting Blood Pressure: 142/90 Maximum Exercise Blood Pressure: 160/88 EKG Type: NSR with rare pac, pvc, Outcomes & Goals Goals:: Verbalizes understanding of THR, RPE & goal METS by session 6, Documents in home exercise log/reports 30 min aerobic 5 day/wk by DC, Demonstrates accurate pulse taking by DC and Other additional outcome/goals: see below Intervention & Plan Exercise Program Goals: Instruct on personal THR & RPE, Instruct on MET level & personal MET goal, Show patient to take own pulse /validate performance until accurate, Instruct on home exercise and Other additional plan/int 30-day Reassessments 30 day Reassessments:: Progressing Reassessment Notes & Comments:: RPE explained Physical Activity Home Exercise Physical Activity - Home Exercise: Safe Exercise, Warm-up, Self-monitoring, Cool-Down, Home Exercise > 30 min Daily and Sitting Time <3 hours/daily Outcomes & Goals Outcomes/Goals: Demonstrates correct Warm-up/exercise Cool-Down (S3) if = 2.5 METs, Verbalizes symptoms of exercise intolerance by Session 3 (S3), Demonstrate safe equipment use (S3) & follows exercise prescrition (6) and Other: See below Intervention & Plan Plan/Intervention: Instruct warm-up & cool-down if exercising at > 2 METs, Instruct on symptoms of exercise intolerance & actions to take, Instruct & monitor on saf, Assess intial functional capacity & safety risk and Other See below 30-day Reassessments 30 day Reassessments:: Progressing Reassessment Notes & Comments:: warm up encouraged Nutrition - 30-Day Assessment Program Goals Nutrition Program Goals Patient has diagnosis of Hyperlipidemia (ICD E78)?: Yes Visit Date of Eval: 12/15/23 Session #:: 10 Cholesterol/Lipids (Other Core Measures) Determine presence & major risk factors that modify LDL goal: Hypertension or hypertensive medication, Low HDL cholesterol <40 mg/dL*, Family history of premature CHD in Male < 55 years: female <65 yearsFa and Age men > 45 years; women >/= 55 years Outcomes/Goals: Pt IDs own risk factors & lifestyle modifications by Session 10, Verbalizes symptoms of angina & response by session 3., Pt independently manages and Other Additional Outcomes/Goals: Intervention/Plan: Advocate for lipid panel cholesterol medication if applicable, Instruct on personal lipid levels & lipid goals/NCEP guidelines, Instruct on cholesterol and Other additional plan/int Referral to dietitian:: No (declines) 30-day Reassessments:: Progressing Reassessment Notes & Comments:: pt to attend nutrition class Diabetes (Other Core Measures) Diabetes Type: Diagnosis Type II ICD-10 E11 Insulin dependent injection/pump?: Yes Referral to Diabetic Clinic:: No Outcomes/Goals:: Able to state symptoms of, Able to state, Able to state and Other additional Intervention/Plan:: Instruct on, Refer to, Instruct on and Other 30-day Reassessments:: Progressing Weight Mgt (Other Care) Height: 5 ft 2 in Weight:: 203 lb BMI: 37.1 Diagnosis Overweight/Obesity BMI> 30% ICD-10 E66: Yes Diagnosis High BMI/Morbid Obesity BMI> 35% ICD-10 Z68: Yes Outcomes/Goals: Pt sets, maintains & shows weight loss goal & trend during rehab and Other additional outcomes/goals Intervention/Plan: Instruct on ideal BMI & set weight loss goal w/patient, Assist pt to ID & incorporate diet changes for weight loss by S9, Refer to Structured Weight Loss program as appropriate, Encourage goal of using 250- 300dcal per session for weight loss and Other additional plan/interventions 30 day Reassessments:: Progressing Reassessment Notes & Comments:: pt to attend nutrition class Healthy Eating Habits Will attend diet classes:: Yes Outcomes/Goals:: Consume diet rich in vegs,fruits,whole grain/high fiber,fish,lean meat, Limit sat/trans fats,cholesterol & added salts & sugars and Other additional outcome/goals: Intervention/Plan:: Assess current eating habits and Other Additional plan/interventions 30-day Reassessments:: Progressing Reassessment Notes & Comments:: pt to attend nutrition class Education Gave educational materials for:: Signs & symptoms of hypoglycemia, Signs & symptoms of hyperglycemia, Relate diabetes to coronary artery disease and Healthy eating Nutrition - 60-Day Assessment Weight Mgt (Other Care) Height: 5 ft 2 in Weight:: 203 lb BMI: 37.1 Core - 30-Day Assessment Visit Date of Eval: 12/15/23 Session #:: 10 Medication Compliance Preventative Medication(s):: Aspirin and Beta leena H/O mental health issues: depression, anxiety, or addiction?: No Doesn?t believe in the benefits of treatment?: No Believes medications are unnecessary or harmful?: No Has a concern about medication side effects?: No Outcomes/Goals: Verbalizes medications,desired effect & common side effects @ DC, Pt self-reports following medication regimen, Keeps card in wallet w/medications listed by DC and Other additional outcome/goals: Interventions/plans: Instruct on medication effects & side effects, Review medication list w/patient every two weeks, Instruct importance of taking meds as ordered & assist problem solving and Other additional 30-day Reassessments:: Progressing Reassessment Notes & Comments:: Off statin to see if muscle pain/weakness subsides Tobacco Use Tobacco Use: Non-smoker Hypertension Hypertension Diagnosis:: Hypertension ICD-10 I10 Resting Blood Pressure:: 142/90 [place] [employer] Hypertension Guidelines Peak Exercise Blood Pressure:: 160/88 Outcomes/Goals: Able to verbalize/achieve optimal blood pressure <130/80, Incorporates diet changes & exercise for blood pressure control by DC and Other additional outcomes/goals Interventions/plan: Instruct on optimal blood pressure, hypertension & medications, Instruct on effects of sodium, alcohol, stress, exercise &hypertension and Other additional plan/interventions 30 day Reassessments:: Progressing Reassessment Notes & Comments:: pt states her BP's are low at home Tobacco Cessation Referral Smoking Cessation Referral:: No Individual Education/Counseling:: No Education Schedule Given:: Yes Psychosocial - 30-Day Assess VIsit Date of Eval: 12/15/23 Session #:: 10 History of previous Mental disease:: No Target Goals Target Goals Outcomes/Goals: See list Psychosocial Outcomes/Goals:: ID's personal stressors & 2 strategies to manage stress by discharge and Other Additional outcome/goals: Intervention/Plan: See List Interventions/Plan:: Assess stressors,coping strategies & signs of derpression on admission, Instruct/assist pt to develop coping & personal stress Mgt strategies, Refer to Behavioral Health if appropriate, Refer to Physician if appropriate, Instruct patient to recognize signs & symptoms of depression, Instruct patient to recog and Other additional plan/intervention 30-day Reassessments: 30 day Reassessments:: Met Psychosocial - 60-Day Assess Target Goals Target Goals Outcomes/Goals: See list Psychosocial Outcomes/Goals:: ID's personal stressors & 2 strategies to manage stress by discharge and Other Additional outcome/goals: Psychosocial - 90-Day Assess Target Goals Target Goals Psychosocial - Final Assessmen Target Goals Target Goals Nutrition - 90-Day Assessment Weight Mgt (Other Care) Height: 5 ft 2 in Weight:: 203 lb BMI: 37.1 Nutrition - Final Assessment Weight Mgt (Other Care) Height: 5 ft 2 in Weight:: 203 lb BMI: 37.1
[2023-12-15 08:33] VITALS: BP 142/90; BMI 37.1
== END 2024-01-04 23:59 ==
LOC: CR 11:30
PROVIDERS: PCP Internal Medicine; Referring Provider Internal Medicine Cardiovascular Disease; Visit Provider Internal Medicine Cardiovascular Disease
DX: I25.10 Atherosclerotic heart disease of native coronary artery without angina pectoris (principal); I95.1 Orthostatic hypotension; E78.2 Mixed hyperlipidemia; I10 Essential (primary) hypertension; E11.59 Type 2 diabetes mellitus with other circulatory complications; I47.10 Supraventricular tachycardia, unspecified
CPT/HCPCS: 93798

== ENCOUNTER → 2024-01-03 | Outpatient (CLI) | payer BC, SELFPAY ==
[2023-12-15 08:33] VITALS: BMI 37.1
--- NOTE | 2024-01-03 12:25 | RAD_ITS ---
INDICATION: chest tenderness- post CABG EXAMINATION/TECHNIQUE: X-RAY - XR Chest 2 Views COMPARISON: No relevant prior comparison study available FINDINGS: LINES/DEVICES: None. LUNGS: The lungs are well expanded. Linear left midlung opacity. No consolidation, edema or effusion. No pneumothorax. MEDIASTINUM AND CARDIOVASCULAR STRUCTURES: Cardiac silhouette not enlarged. Central airways and mediastinal contour are unremarkable. BONES AND SOFT TISSUES: No acute abnormality. Degenerative changes of the spine. RAD/Chest PA and Lateral IMPRESSION: Linear left midlung opacity could be atelectasis or scarring. No consolidation. Electronically Signed: Naren Rowland MD at 22:36 EDT ,
[2024-01-03 13:43] LABS: Absolute Neutrophil Count 6.8 X10^3/uL (2.0-7.7); Basophil# 0.07 X10^3/uL; Basophil% 0.6 % (0-1); Eosinophil# 0.46 X10^3/uL; Eosinophils% 4.3 % (0-5); Hematocrit 42.6 % (37-47); Hemoglobin 13.2 g/dL (12.0-15.0); Lymphocyte % 24.1 % (19-41); Mean Corpuscular Hgb 25.7 pg (27.0-32.0); Mean Platelet Vol. 10.5 fl (6.2-12.0); Monocyte# 0.82 X10^3/uL; Monocyte% 7.6 % (0-10); NRBC Flagged by Analyzer 0 % (0-5); Neutrophil # 6.79 X10^3/uL (2.7-7.7); Neutrophil % 63.1 % (47-70); Platelet Count 314 K/mm3 (150-450); RBC Distribution Width SD 45.6 fl (35.1-43.9); Red Blood Count 5.13 M/mm3 (4.2-5.4); White Blood Count 10.8 K/mm3 (4.4-11.0)
[2024-01-03 14:08] LABS: Anion Gap 3 (5-15); BUN 11 mg/dL (7-18); BUN/Creat Ratio 13.9 RATIO (10-20); Calcium,Total 9.2 mg/dL (8.5-10.1); Chloride 108 mmol/L (98-107); Creatinine, Serum 0.79 mg/dL (0.55-1.02); EST Glomerular Filtration Rate 77 mL/min (>60); Est Glom Filt Rate - Afr Amer 94 mL/min (>60); Glucose 124 mg/dL (74-106); Potassium 3.8 mmol/L (3.5-5.1); Sodium Level 139 mmol/L (136-145)
== END | disposition home or self-care (01) ==
LOC: LAB 12:14
PROVIDERS: PCP Internal Medicine; Referring Provider Nurse Practitioner Family; Visit Provider Nurse Practitioner Family
DX: D72.829 Elevated white blood cell count, unspecified (principal); E11.9 Type 2 diabetes mellitus without complications; R21 Rash and other nonspecific skin eruption; E78.2 Mixed hyperlipidemia; R07.89 Other chest pain; Z95.1 Presence of aortocoronary bypass graft
CPT/HCPCS: 36415; 71046; 80048; 85025

== ENCOUNTER 2024-02-04 11:30 | Outpatient (RCR) | payer BC, SELFPAY ==
[2023-12-15 08:33] VITALS: BMI 37.1
[2024-01-05 00:43] VITALS: BP 142/90
--- NOTE | 2024-01-10 07:28 | PCM.CR.ITP ---
Nutrition - Initial Assessment Weight Mgt (Other Care) Height: 5 ft 2 in Weight:: 203 lb BMI: 37.1 Psychosocial - Initial Assess Target Goals Target Goals Referral to Behavioral Health PS - Interventions: Yes: Attend Stress Management Classes and No: Referral to Behavioral Health if PHQ-9 score >9:, No: Referral to [facility] and No: Referral to Physician if PHQ-9 if score is 5-9: Patient Health Questionnaire PHQ-9 Screening 60-Day Re-eval Assessment: 1. Little interest or pleasure in doing things: Not at all 2. Feeling down, depressed, or hopeless: Not at all 3. Trouble falling or staying asleep, or sleeping too much: Several days 4. Feeling tired or having little energy: Several days 5. Poor appetite or overeating: Not at all 6. Feeling bad about yourself -- or that you are a failure or have let yourself or your family down: Not at all 7. Trouble concentrating on things, such as reading the newspaper or watching television: Not at all 8. Moving or speaking so slowly that other people could have noticed. Or the opposite - being so fidgety or restless that you have been moving around a lot more than usual: Not at all 9. Thoughts that you would be better off , or of hurting yourself in some way: Not at all How difficult have these problems made it for you to do your work, take care of things at home, or get along with other people?: Not difficult at all Total Score: 2 Self-Efficacy 6-Item Scale 60-Day Re-eval Assessment: We would like to know how confident you are in doing certain activities. Please select your confidence level for: Fatigue Select Number: 5 Physical Discomfort or Pain Select Number: 5 Emotional Distress Select Number: 9 Other Symptoms or Health Problems Select Number: 9 Different Tasks and Activities Select Number: 9 Medication Select Number: 9 Total Score:: 7 Nutrition Survey Nutrition Survey Instructions Scoring Instructions Exercise - 60-day Assessment Visit Date of Eval: 01/10/24 Session #:: 20 Physician Prescribed Exercise Modalities: Treadmill and NuStep Frequency: 3x/week for 12 weeks [36 sessions] Intensity: 60-80% of age predicted maximum heart rate reserve Duration: 30 - 45 minutes Current METSs:: 4.0 unchanged off statin for now to see if helpsher muscle pain/weakness Target Heart Rate:: 94-109 Current RPE:: 12-13 Maximum Excercise HR:: 88 Resting Blood Pressure: 120/86 Maximum Exercise Blood Pressure: 144/86 EKG Type: NSR w/PVCs, PACs Outcomes & Goals Goals:: Verbalizes understanding of THR, RPE & goal METS by session 6, Documents in home exercise log/reports 30 min aerobic 5 day/wk by DC and Demonstrates accurate pulse taking by DC Intervention & Plan Exercise Program Goals: Instruct on personal THR & RPE, Instruct on MET level & personal MET goal, Show patient to take own pulse /validate performance until accurate and Instruct on home exercise 30-day Reassessments 30 day Reassessments:: Met Physical Activity Home Exercise Physical Activity - Home Exercise: Safe Exercise, Warm-up, Self-monitoring, Cool-Down, Home Exercise > 30 min Daily and Sitting Time <3 hours/daily Outcomes & Goals Outcomes/Goals: Demonstrates correct Warm-up/exercise Cool-Down (S3) if = 2.5 METs, Verbalizes symptoms of exercise intolerance by Session 3 (S3) and Demonstrate safe equipment use (S3) & follows exercise prescrition (6) Intervention & Plan Plan/Intervention: Instruct warm-up & cool-down if exercising at > 2 METs, Instruct on symptoms of exercise intolerance & actions to take, Instruct & monitor on saf and Assess intial functional capacity & safety risk 30-day Reassessments 30 day Reassessments:: Met Nutrition - 30-Day Assessment Weight Mgt (Other Care) Height: 5 ft 2 in Weight:: 203 lb BMI: 37.1 Nutrition - 60-Day Assessment Program Goals Nutrition Program Goals Patient has diagnosis of Hyperlipidemia (ICD E78)?: Yes Visit Date of Eval: 01/10/24 Session #:: 20 Cholesterol/Lipids (Other Core Measures) Total Triglycerides (mg/dL): 106 Total Cholesterol: 182 LDL Cholesterol (mg/dL): 113 HDL Cholesterol (mg/dL): 48 Determine presence & major risk factors that modify LDL goal: Hypertension or hypertensive medication and Age men > 45 years; women >/= 55 years Outcomes/Goals: Pt IDs own risk factors & lifestyle modifications by Session 10, Verbalizes symptoms of angina & response by session 3. and Pt independently manages Intervention/Plan: Instruct on personal lipid levels & lipid goals/NCEP guidelines and Instruct on cholesterol Referral to dietitian:: Yes 30-day Reassessments:: Progressing Reassessment Notes & Comments:: Currently off statin medication to see if it helps with her leg muscle pain/weakness. Diabetes (Other Core Measures) Diabetes Type: Diagnosis Type II ICD-10 E11 Insulin dependent injection/pump?: No Non-Insulin Dependent?: No Do you monitor your blood sugar at home?: No Referral to Diabetic Clinic:: No 30-day Reassessments:: Progressing Weight Mgt (Other Care) Not Applicable: No Height: 5 ft 2 in Weight:: 203 lb BMI: 37.1 Diagnosis Overweight/Obesity BMI> 30% ICD-10 E66: Yes Diagnosis High BMI/Morbid Obesity BMI> 35% ICD-10 Z68: Yes Outcomes/Goals: Pt sets, maintains & shows weight loss goal & trend during rehab Intervention/Plan: Instruct on ideal BMI & set weight loss goal w/patient, Assist pt to ID & incorporate diet changes for weight loss by S9, Refer to Structured Weight Loss program as appropriate and Encourage goal of using 250-300dcal per session for weight loss 30 day Reassessments:: Not Met Reassessment Notes & Comments:: no weight loss this 30-day period. Healthy Eating Habits Will attend diet classes:: Yes Outcomes/Goals:: Consume diet rich in vegs,fruits,whole grain/high fiber,fish,lean meat and Limit sat/trans fats,cholesterol & added salts & sugars Intervention/Plan:: Assess current eating habits 30-day Reassessments:: Progressing Reassessment Notes & Comments:: referral to Nutrition Services Education Gave educational materials for:: Relate diabetes to coronary artery disease and Healthy eating Core - 90 Day Assessment Visit Date of Eval: 01/10/24 Session #:: 20 Medication Compliance Preventative Medication(s):: Aspirin and Beta leena H/O mental health issues: depression, anxiety, or addiction?: No Doesn?t believe in the benefits of treatment?: No Believes medications are unnecessary or harmful?: No Has a concern about medication side effects?: No Expresses concern over the cost of medications?: No Outcomes/Goals: Verbalizes medications,desired effect & common side effects @ DC, Pt self-reports following medication regimen and Keeps card in wallet w/medications listed by DC Interventions/plans: Instruct on medication effects & side effects, Review medication list w/patient every two weeks and Instruct importance of taking meds as ordered & assist problem solving 30-day Reassessments:: Progressing Tobacco Use Tobacco Use: Non-smoker Hypertension Hypertension Diagnosis:: Hypertension ICD-10 I10 Resting Blood Pressure:: 134/80 [place] [employer] Hypertension Guidelines Peak Exercise Blood Pressure:: 166/86 Outcomes/Goals: Able to verbalize/achieve optimal blood pressure <130/80 and Incorporates diet changes & exercise for blood pressure control by DC Interventions/plan: Instruct on optimal blood pressure, hypertension & medications and Instruct on effects of sodium, alcohol, stress, exercise &hypertension Comments: See resting BPs on Multi-Session Report in her EMR. 30 day Reassessments:: Not Met Tobacco Cessation Referral Smoking Cessation Referral:: No Individual Education/Counseling:: No Education Schedule Given:: Yes Psychosocial - 30-Day Assess Target Goals Target Goals Referral to Behavioral Health PS - Interventions: Yes: Attend Stress Management Classes and No: Referral to Behavioral Health if PHQ-9 score >9:, No: Referral to [facility] and No: Referral to Physician if PHQ-9 if score is 5-9: Outcomes/Goals: See list Psychosocial Outcomes/Goals:: ID's personal stressors & 2 strategies to manage stress by discharge Psychosocial - 60-Day Assess VIsit Date of Eval: 01/10/24 Session #:: 20 Not Applicable: Yes History of previous Mental disease:: No Target Goals Target Goals Psychosocial Test Tool Used:: PHQ-9 Questionnaire phq-9 Severity Referral to Behavioral Health PS - Interventions: Yes: Attend Stress Management Classes and No: Referral to Behavioral Health if PHQ-9 score >9:, No: Referral to [facility] and No: Referral to Physician if PHQ-9 if score is 5-9: Outcomes/Goals: See list Psychosocial Outcomes/Goals:: ID's personal stressors & 2 strategies to manage stress by discharge Intervention/Plan: See List Interventions/Plan:: Assess stressors,coping strategies & signs of derpression on admission and Instruct patient to recog 30-day Reassessments: 30 day Reassessments:: Met Psychosocial - 90-Day Assess Target Goals Target Goals Referral to Behavioral Health PS - Interventions: Yes: Attend Stress Management Classes and No: Referral to Behavioral Health if PHQ-9 score >9:, No: Referral to [facility] and No: Referral to Physician if PHQ-9 if score is 5-9: Psychosocial - Final Assessmen Target Goals Target Goals Referral to Behavioral Health PS - Interventions: Yes: Attend Stress Management Classes and No: Referral to Behavioral Health if PHQ-9 score >9:, No: Referral to [facility] and No: Referral to Physician if PHQ-9 if score is 5-9: Nutrition - 90-Day Assessment Weight Mgt (Other Care) Height: 5 ft 2 in Weight:: 203 lb BMI: 37.1 Nutrition - Final Assessment Weight Mgt (Other Care) Height: 5 ft 2 in Weight:: 203 lb BMI: 37.1
[2024-01-10 07:41] VITALS: BP 120/86; BP 134/80; BMI 37.1
== END 2024-02-04 23:59 ==
LOC: CR 11:30
PROVIDERS: PCP Internal Medicine; Referring Provider Internal Medicine Cardiovascular Disease; Visit Provider Internal Medicine Cardiovascular Disease
DX: Z95.1 Presence of aortocoronary bypass graft
CPT/HCPCS: 93798

== ENCOUNTER 2024-02-21 11:30 | Outpatient (RCR) | payer BC, SELFPAY ==
[2024-01-10 07:41] VITALS: BMI 37.1
[2024-02-05 02:13] VITALS: BP 120/86; BP 134/80; BP 142/90
--- NOTE | 2024-02-14 08:04 | PCM.CR.ITP ---
Exercise - Initial Assessment Physician Prescribed Exercise Modalities: Treadmill, SciFit Stepper and SciFit Pro-II Ergometer Nutrition - Initial Assessment Weight Mgt (Other Care) Height: 5 ft 2 in Weight:: 205 lb BMI: 37.5 Psychosocial - Initial Assess Target Goals Target Goals Patient Health Questionnaire PHQ-9 Screening 90-Day Re-eval Assessment: 1. Little interest or pleasure in doing things: Not at all 2. Feeling down, depressed, or hopeless: Not at all 3. Trouble falling or staying asleep, or sleeping too much: Several days 4. Feeling tired or having little energy: Several days 5. Poor appetite or overeating: Not at all 6. Feeling bad about yourself -- or that you are a failure or have let yourself or your family down: Not at all 7. Trouble concentrating on things, such as reading the newspaper or watching television: Not at all 8. Moving or speaking so slowly that other people could have noticed. Or the opposite - being so fidgety or restless that you have been moving around a lot more than usual: Not at all 9. Thoughts that you would be better off , or of hurting yourself in some way: Not at all How difficult have these problems made it for you to do your work, take care of things at home, or get along with other people?: Not difficult at all Total Score: 2 Self-Efficacy 6-Item Scale 90-Day Re-eval Assessment: We would like to know how confident you are in doing certain activities. Please select your confidence level for: Fatigue Select Number: 5 Physical Discomfort or Pain Select Number: 5 Emotional Distress Select Number: 9 Other Symptoms or Health Problems Select Number: 9 Different Tasks and Activities Select Number: 9 Medication Select Number: 9 Total Score:: 7 Nutrition Survey Nutrition Survey Instructions Scoring Instructions Exercise - 30-day Assessment Physician Prescribed Exercise Modalities: Treadmill, SciFit Stepper and SciFit Pro-II Ergometer Exercise - 60-day Assessment Physician Prescribed Exercise Modalities: Treadmill, SciFit Stepper and SciFit Pro-II Ergometer Exercise - 90-day Assessment Visit Date of Eval: 02/14/24 Session #:: 34 Physician Prescribed Exercise Modalities: Treadmill, SciFit Stepper and SciFit Pro-II Ergometer Frequency: 3x/week for 12 weeks [36 sessions] Intensity: 60-80% of age predicted maximum heart rate reserve Duration: 30 - 45 minutes Current METSs:: 3.9 Target Heart Rate:: 94-109 Current RPE:: 12-13 Maximum Excercise HR:: 85 Resting Blood Pressure: 136/86 Maximum Exercise Blood Pressure: 160/100 EKG Type: NSR with rare PAC, PVC Outcomes & Goals Goals:: Verbalizes understanding of THR, RPE & goal METS by session 6, Documents in home exercise log/reports 30 min aerobic 5 day/wk by DC, Demonstrates accurate pulse taking by DC and Other additional outcome/goals: see below Intervention & Plan Exercise Program Goals: Instruct on personal THR & RPE, Instruct on MET level & personal MET goal, Show patient to take own pulse /validate performance until accurate, Instruct on home exercise and Other additional plan/int 30-day Reassessments 30 day Reassessments:: Met Physical Activity Home Exercise Physical Activity - Home Exercise: Safe Exercise, Warm-up, Self-monitoring, Cool-Down, Home Exercise > 30 min Daily and Sitting Time <3 hours/daily Outcomes & Goals Outcomes/Goals: Demonstrates correct Warm-up/exercise Cool-Down (S3) if = 2.5 METs, Verbalizes symptoms of exercise intolerance by Session 3 (S3), Demonstrate safe equipment use (S3) & follows exercise prescrition (6) and Other: See below Intervention & Plan Plan/Intervention: Instruct warm-up & cool-down if exercising at > 2 METs, Instruct on symptoms of exercise intolerance & actions to take, Instruct & monitor on saf, Assess intial functional capacity & safety risk and Other See below 30-day Reassessments 30 day Reassessments:: Met Exercise - Final/Discharge Physician Prescribed Exercise Modalities: Treadmill, SciFit Stepper and SciFit Pro-II Ergometer Nutrition - 30-Day Assessment Weight Mgt (Other Care) Height: 5 ft 2 in Weight:: 205 lb BMI: 37.5 Nutrition - 60-Day Assessment Weight Mgt (Other Care) Height: 5 ft 2 in Weight:: 205 lb BMI: 37.5 Core - 90 Day Assessment Visit Date of Eval: 02/14/24 Session #:: 34 Medication Compliance Preventative Medication(s):: Aspirin and Beta leena H/O mental health issues: depression, anxiety, or addiction?: No Doesn?t believe in the benefits of treatment?: No Believes medications are unnecessary or harmful?: No Has a concern about medication side effects?: No Expresses concern over the cost of medications?: No Outcomes/Goals: Verbalizes medications,desired effect & common side effects @ DC, Pt self-reports following medication regimen, Keeps card in wallet w/medications listed by DC and Other additional outcome/goals: Interventions/plans: Instruct on medication effects & side effects, Review medication list w/patient every two weeks, Instruct importance of taking meds as ordered & assist problem solving and Other additional 30-day Reassessments:: Met Tobacco Use Tobacco Use: Non-smoker Hypertension Hypertension Diagnosis:: Hypertension ICD-10 I10 Resting Blood Pressure:: 136/86 [place] [employer] Hypertension Guidelines Peak Exercise Blood Pressure:: 166/100 Outcomes/Goals: Able to verbalize/achieve optimal blood pressure <130/80, Incorporates diet changes & exercise for blood pressure control by DC and Other additional outcomes/goals Interventions/plan: Instruct on optimal blood pressure, hypertension & medications, Instruct on effects of sodium, alcohol, stress, exercise &hypertension and Other additional plan/interventions 30 day Reassessments:: Met Tobacco Cessation Referral Smoking Cessation Referral:: No Individual Education/Counseling:: No Education Schedule Given:: Yes Psychosocial - 30-Day Assess Target Goals Target Goals Psychosocial - 60-Day Assess Target Goals Target Goals Psychosocial - 90-Day Assess Target Goals Target Goals Psychosocial - Final Assessmen Target Goals Target Goals Nutrition - 90-Day Assessment Program Goals Nutrition Program Goals Patient has diagnosis of Hyperlipidemia (ICD E78)?: Yes Visit Date of Eval: 02/14/24 Session #:: 34 Cholesterol/Lipids (Other Core Measures) Determine presence & major risk factors that modify LDL goal: Hypertension or hypertensive medication, Low HDL cholesterol <40 mg/dL*, Family history of premature CHD in Male < 55 years: female <65 yearsFa and Age men > 45 years; women >/= 55 years Outcomes/Goals: Pt IDs own risk factors & lifestyle modifications by Session 10, Verbalizes symptoms of angina & response by session 3., Pt independently manages and Other Additional Outcomes/Goals: Intervention/Plan: Advocate for lipid panel cholesterol medication if applicable, Instruct on personal lipid levels & lipid goals/NCEP guidelines, Instruct on cholesterol and Other additional plan/int 30-day Reassessments:: Met Diabetes (Other Core Measures) Diabetes Type: Diagnosis Type II ICD-10 E11 Insulin dependent injection/pump?: No Non-Insulin Dependent?: No Do you monitor your blood sugar at home?: No Referral to Diabetic Clinic:: No 30-day Reassessments:: Met Weight Mgt (Other Care) Height: 5 ft 2 in Weight:: 205 lb BMI: 37.5 Diagnosis Overweight/Obesity BMI> 30% ICD-10 E66: Yes Diagnosis High BMI/Morbid Obesity BMI> 35% ICD-10 Z68: Yes Outcomes/Goals: Pt sets, maintains & shows weight loss goal & trend during rehab and Other additional outcomes/goals Intervention/Plan: Instruct on ideal BMI & set weight loss goal w/patient, Assist pt to ID & incorporate diet changes for weight loss by S9, Refer to Structured Weight Loss program as appropriate, Encourage goal of using 250-300dcal per session for weight loss and Other additional plan/interventions 30 day Reassessments:: Progressing Healthy Eating Habits Will attend diet classes:: Yes Outcomes/Goals:: Consume diet rich in vegs,fruits,whole grain/high fiber,fish,lean meat, Limit sat/trans fats,cholesterol & added salts & sugars and Other additional outcome/goals: Intervention/Plan:: Assess current eating habits and Other Additional plan/interventions 30-day Reassessments:: Met Education Gave educational materials for:: Signs & symptoms of hypoglycemia, Signs & symptoms of hyperglycemia, Relate diabetes to coronary artery disease and Healthy eating Nutrition - Final Assessment Weight Mgt (Other Care) Height: 5 ft 2 in Weight:: 205 lb BMI: 37.5
[2024-02-14 08:14] VITALS: BP 136/86; BMI 37.5
== END 2024-03-05 23:59 ==
LOC: CR 11:30
PROVIDERS: PCP Internal Medicine; Referring Provider Internal Medicine Cardiovascular Disease; Visit Provider Internal Medicine Cardiovascular Disease
DX: I25.10 Atherosclerotic heart disease of native coronary artery without angina pectoris (principal); I10 Essential (primary) hypertension; I47.10 Supraventricular tachycardia, unspecified; Z95.1 Presence of aortocoronary bypass graft; E78.2 Mixed hyperlipidemia; E11.69 Type 2 diabetes mellitus with other specified complication
CPT/HCPCS: 93798

== ENCOUNTER → 2024-06-13 | Outpatient (CLI) | payer MEDICARE, OTHER, SELFPAY ==
[2024-06-13 12:18] VITALS: BMI 37.5
[2024-06-13 13:55] LABS: AST(SGOT) 25 U/L (15-37); Alanine Aminotransfer ALT/SGPT 17 U/L (13-56); Albumin, Serum 3.7 g/dL (3.2-5.0); Alkaline Phosphatase 73 U/L (45-117); Anion Gap 8 (5-15); BUN 8 mg/dL (7-18); BUN/Creat Ratio 9.7 RATIO (10-20); Bilirubin, Direct 0.13 mg/dL (0.00-0.30); Calcium,Total 9.4 mg/dL (8.5-10.1); Chloride 104 mmol/L (98-107); Cholesterol 207 mg/dL (200); Creatinine, Serum 0.82 mg/dL (0.55-1.02); EST Glomerular Filtration Rate 74 mL/min (>60); Est Glom Filt Rate - Afr Amer 90 mL/min (>60); Globulin 4.2 g/dL (2.2-4.2); Glucose 139 mg/dL (74-106); High Density Lipoprotein 59 mg/dL; Potassium 3.7 mmol/L (3.5-5.1); Protein, Total 7.9 g/dL (6.4-8.2); Sodium Level 138 mmol/L (136-145); Triglycerides 99 mg/dL; Very Low Density Lipoprotein 20 mg/dL (5-40)
[2024-06-13 14:01] LABS: Hemoglobin A1c 6.6 % (3.8-5.6)
== END | disposition home or self-care (01) ==
PROVIDERS: PCP Internal Medicine; Referring Provider Internal Medicine Cardiovascular Disease; Visit Provider Internal Medicine Cardiovascular Disease
DX: E11.9 Type 2 diabetes mellitus without complications (principal); E78.2 Mixed hyperlipidemia; Z95.1 Presence of aortocoronary bypass graft
CPT/HCPCS: 36415; 80048; 80061; 80076; 83036

== ENCOUNTER → 2024-06-20 | Outpatient (CLI) | payer MEDICARE, OTHER, SELFPAY ==
[2024-06-13 12:18] VITALS: BMI 37.5
--- NOTE | 2024-06-20 13:37 | ECHOD_ITS ---
Reason For Study: CORONARY ARTERY DISEASE Procedure This was a 2D Doppler, Color Flow transthoracic echocardiogram. Myocardial strain analysis was performed in this exam to aid in the assessment of cardiac function. The study was technically difficult. Exam performed in department. Left Ventricle Normal LV size. Left ventricular systolic function is normal. The left ventricular ejection fraction is 60 %. No regional wall motion abnormalities noted. Right Ventricle Normal RV size. Normal systolic function. Atria Normal left atrium. Normal right atrium. Mitral Valve Normal mitral valve. Tricuspid Valve Normal tricuspid valve. Mild tricuspid valve insufficiency. Pulmonary artery systolic pressure is 24 mmHg. Aortic Valve Trisinus/trileaflet aortic valve. Pulmonic Valve Normal pulmonic valve. Great Vessels Normal aortic root. The pulmonary artery is normal size. Normal inferior vena cava. Pericardium/Pleural No pericardial effusion. MMode/2D Measurements & Calculations LVIDd: 4.4 cm IVSd: 1.1 cm LVOT diam: 2.0 cm LVIDs: 2.7 cm LVPWd: 0.88 cm LVOT area: 3.1 cm2 RVDd: 3.4 cm FS: 39.7 % asc Aorta Diam: 3.8 cm LAV(MOD-bp): 40.7 ml LVAd ap4: 18.7 cm2 LAV(MOD-bp) Indexed: 21.2 ml/m2 LVLd ap4: 6.6 cm LAV(MOD-sp2): 41.1 ml EDV(MOD-sp4): 45.9 ml LAV(MOD-sp4): 38.0 ml EDV(sp4-el): 45.1 ml LVAs ap4: 11.3 cm2 LVLs ap4: 5.8 cm ESV(MOD-sp4): 18.4 ml ESV(sp4-el): 18.6 ml EF(MOD-sp4): 59.9 % EF(sp4-el): 58.8 % LVAd ap2: 18.8 cm2 SV(MOD-sp4): 27.5 ml SV(MOD-sp2): 25.7 ml LVLd ap2: 6.6 cm EDV(MOD-sp2): 46.7 ml EDV(sp2-el): 45.4 ml LVAs ap2: 11.9 cm2 LVLs ap2: 5.7 cm ESV(MOD-sp2): 21.1 ml ESV(sp2-el): 21.0 ml EF(MOD-sp2): 54.9 % SV(sp4-el): 26.5 ml Ao sinus diam: 2.[address] Junction: 2.6 cm LA dimension(2D): 4.1 cm LA A4 area: 15.3 cm2 RA A4 area: 11.4 cm2 TAPSE: 1.5 cm Time Measurements MV dec time: 0.15 sec Doppler Measurements & Calculations MV E max morgan: 92.6 cm/sec Lat Peak E' Morgan: 10.9 cm/sec Med Peak E' Morgan: 10.3 cm/sec MV A max morgan: 92.6 cm/sec E/E' lat: 8.5 E/E' med: 9.0 MV E/A: 1.0 MV dec slope: 605.6 cm/sec2 Ao V2 max: 144.9 cm/sec LV V1 max: 85.2 cm/sec Ao max P.4 mmHg LV V1 max P.9 mmHg Ao V2 mean: 94.6 cm/sec LV V1 mean P.6 mmHg Ao mean P.2 mmHg LV V1 mean: 58.0 cm/sec Ao V2 VTI: 29.7 cm LV V1 VTI: 18.5 cm AV (velocity ratio): 0.62 PIETRO(I,D): 1.9 cm2 PIETRO(V,D): 1.8 cm2 SV(LVOT): 56.8 ml PA V2 max: 93.9 cm/sec TR max morgan: 233.1 cm/sec PA max PG (full): 1.2 mmHg TR max P.7 mmHg ECHO/Echo Complete Interpretation Summary Normal LV size. Left ventricular systolic function is normal. The left ventricular ejection fraction is 60 %. The global longitudinal strain is moderately abnormal. The global longitudinal strain = -13.5% (abnormal). Ordering Physician: Luisito Escalera Referring Physician: Emily Flores M.D. Performed By: Brandi Matos RDCS
== END | disposition home or self-care (01) ==
LOC: CVS 13:36
PROVIDERS: PCP Internal Medicine; Referring Provider Internal Medicine Cardiovascular Disease; Visit Provider Internal Medicine Cardiovascular Disease
DX: Z95.1 Presence of aortocoronary bypass graft (principal); I25.10 Atherosclerotic heart disease of native coronary artery without angina pectoris
CPT/HCPCS: 93306

== ENCOUNTER → 2024-11-02 | Outpatient (CLI) | payer MEDICARE, OTHER, SELFPAY ==
[2024-06-13 12:18] VITALS: BMI 37.5
[2024-11-02 11:11] LABS: AST(SGOT) 15 U/L (<=31); Alanine Aminotransfer ALT/SGPT 10 U/L (<=34); Albumin, Serum 4.3 g/dL (3.4-4.8); Alkaline Phosphatase 74 U/L (35-104); Bilirubin, Direct 0.22 mg/dL (0.00-0.30); Globulin 3.2 g/dL (2.2-4.2); Protein, Total 7.5 g/dL (5.9-8.4); Total Bilirubin 0.46 mg/dL (0.00-1.30)
[2024-11-02 12:25] LABS: Cholesterol 153 mg/dL (<=200); High Density Lipoprotein 63 mg/dL; Low Density Lipoprotein Calc. 72 mg/dL; Triglycerides 92 mg/dL; Very Low Density Lipoprotein 18 mg/dL (5-40); cholesterol:hdl ratio screen 2.43
== END | disposition home or self-care (01) ==
PROVIDERS: PCP Internal Medicine; Referring Provider Nurse Practitioner Family; Visit Provider Nurse Practitioner Family
DX: E78.2 Mixed hyperlipidemia (principal); E11.69 Type 2 diabetes mellitus with other specified complication; I25.10 Atherosclerotic heart disease of native coronary artery without angina pectoris; Z95.1 Presence of aortocoronary bypass graft
CPT/HCPCS: 36415; 80061; 80076